=== PATIENT | female | born 1955 | race Caucasian/White ===

== ENCOUNTER → 2017-01-13 | Outpatient (CLI) | payer BC ==
[~2017-01-13] MED LIST: LORA-653 PO; PANT40TA2 PO; SULFPOW XX
[2017-01-13 11:33] LABS: Basophils # (auto) 0.1 uL; Eosinophils # (auto) 0.1 uL; Eosinophils % (auto) 2.1 % (0.0-7.0); Hematocrit 43.6 % (36.0-46.0); Hemoglobin 14.7 g/dL (12.2-16.2); Lymphocytes # (auto) 2.1 uL; Lymphocytes % (auto) 36.1 % (10.0-50.0); Mean Corpuscular Hemoglobin 32.1 pg (28.0-32.0); Mean Corpuscular Hgb Conc. 33.8 g/dL (32.0-36.0); Mean Corpuscular Volume 95.1 fL (80.0-100.0); Mean Platelet Volume 9.6 fL (7.4-10.4); Monocytes # (auto) 0.4 uL; Neutrophils # (auto) 3.1 uL; Neutrophils % (auto) 53.8 % (37.0-80.0); Platelet Count (auto) 250 10^3/uL (140-450); Red Cell Distribution Width 12.4 % (11.6-16.0); White Blood Cell 5.7 10^3/uL (4.4-10.8)
[2017-01-13 12:08] LABS: Bilirubin, Total 0.9 mg/dL (0.2-1.0); Calcium 9.3 mg/dL (8.5-10.1); Potassium 3.7 mmol/L (3.5-5.1); Total Protein 7.4 g/dL (6.4-8.2); Uric Acid 3.9 mg/dL (2.6-6.0)
== END | disposition home or self-care (01) ==
LOC: LAB 10:30
DX: M32.10 Systemic lupus erythematosus, organ or system involvement unspecified (principal); R76.8 Other specified abnormal immunological findings in serum; M06.9 Rheumatoid arthritis, unspecified; M25.50 Pain in unspecified joint; Z79.899 Other long term (current) drug therapy; D64.9 Anemia, unspecified; I10 Essential (primary) hypertension
CPT/HCPCS: 36415; 80053; 84550; 85025; 85652; 86141; 86160; 86225; 86235; 86376; 86431

== ENCOUNTER → 2017-04-20 | Outpatient (CLI) | payer BC ==
[2017-04-20 10:40] LABS: Basophils # (auto) 0.1 uL; CONDITION Y; Eosinophils # (auto) 0.1 uL; Eosinophils % (auto) 2.5 % (0.0-7.0); Hematocrit 43.6 % (36.0-46.0); Hemoglobin 15.1 g/dL (12.2-16.2); Lymphocytes # (auto) 1.8 uL; Lymphocytes % (auto) 33.5 % (10.0-50.0); Mean Corpuscular Hemoglobin 32.8 pg (28.0-32.0); Mean Corpuscular Hgb Conc. 34.5 g/dL (32.0-36.0); Mean Platelet Volume 8.8 fL (7.4-10.4); Monocytes # (auto) 0.4 uL; Monocytes % (auto) 8.3 % (0.0-12.0); Neutrophils # (auto) 2.9 uL; Neutrophils % (auto) 54.7 % (37.0-80.0); Platelet Count (auto) 246 10^3/uL (140-450); Red Cell Distribution Width 12.6 % (11.6-16.0); White Blood Cell 5.2 10^3/uL (4.4-10.8)
[2017-04-20 11:01] LABS: Urine Bilirubin Negative (Negative); Urine Blood Negative /uL (Negative); Urine Color Yellow (Yellow); Urine Glucose Normal (Normal); Urine Ketone Negative (Negative); Urine Mucus FEW (None Seen); Urine Nitrite Negative (Negative); Urine RBC 1 /hpf (0 - 4); Urine Squamous Epithelial Cell FEW /hpf (<5); Urine Urobilinogen Normal (Negative)
[2017-04-20 11:02] LABS: Albumin 3.7 g/dL (3.4-5.0); BUN/Creatinine Ratio 22.1; Bilirubin, Total 0.8 mg/dL (0.2-1.0); Calcium 9.1 mg/dL (8.5-10.1); Potassium 3.9 mmol/L (3.5-5.1)
[2017-04-20 11:38] LABS: Temperature: 22.3 C (20.0-25.0)
== END | disposition home or self-care (01) ==
LOC: LAB 10:23
PROVIDERS: ATTEND Family Medicine
DX: R53.83 Other fatigue (principal); E78.5 Hyperlipidemia, unspecified; Z12.11 Encounter for screening for malignant neoplasm of colon
CPT/HCPCS: 36415; 80053; 80061; 81001; 82306; 82607; 82746; 84439; 84443; 84480; 85025

== ENCOUNTER 2017-12-10 22:21 | Emergency (ER) | payer BC ==
[~2017-12-10] VITALS: Ht 165.1 cm; Wt 104.4 kg
[~2017-12-10 22:21] MED LIST changes: +CHOL20007 PO; -PANT40TA2 PO; -SULFPOW XX
[2017-12-10] MEDS ORDERED: cloNIDine HCL 0.1 MG TAB ONE (22:40)
[2017-12-10] MEDS ORDERED: cloNIDine HCL 0.1 MG TAB PO ONE (22:45)
[2017-12-10 22:56] LABS: Basophils # (auto) 0.1 uL; Basophils % (auto) 1.5 % (0.0-2.0); Eosinophils # (auto) 0.1 uL; Eosinophils % (auto) 1.7 % (0.0-7.0); Hemoglobin 15.3 g/dL (12.2-16.2); Lymphocytes # (auto) 2.8 uL; Lymphocytes % (auto) 41.1 % (10.0-50.0); Mean Corpuscular Hemoglobin 32.8 pg (28.0-32.0); Mean Corpuscular Hgb Conc. 34.1 g/dL (32.0-36.0); Mean Corpuscular Volume 96.2 fL (80.0-100.0); Monocytes # (auto) 0.5 uL; Monocytes % (auto) 7.7 % (0.0-12.0); Neutrophils # (auto) 3.3 uL; Nucleated Red Blood Cells % 0.2 %; Platelet Count (auto) 242 10^3/uL (140-450); Red Blood Cells 4.68 10^6/uL (4.0-5.20); Red Cell Distribution Width 12.5 % (11.8-14.3); White Blood Cell 6.8 10^3/uL (4.4-10.8)
[2017-12-10 23:15] LABS: Albumin 3.9 g/dL (3.4-5.0); Calcium 9.1 mg/dL (8.5-10.1); Potassium 3.9 mmol/L (3.5-5.1)
[2017-12-10 23:19] LABS: Bilirubin, Total 0.5 mg/dL (0.2-1.0); Total Protein 7.7 g/dL (6.4-8.2)
[2017-12-10 23:49] VITALS: BP 148/74
== END 2017-12-10 23:53 | disposition left against medical advice (07) ==
LOC: ER 22:21
DX: I10 Essential (primary) hypertension (principal); Z53.21 Procedure and treatment not carried out due to patient leaving prior to being seen by health care provider
CPT/HCPCS: 36415; 80053; 85025

== ENCOUNTER → 2018-02-12 | Outpatient (CLI) | payer BC ==
[2018-02-12 09:13] LABS: Basophils # (auto) 0.1 uL; Basophils % (auto) 2.8 % (0.0-2.0); Eosinophils # (auto) 0.1 uL; Eosinophils % (auto) 2.6 % (0.0-7.0); Hematocrit 43.6 % (36.0-46.0); Hemoglobin 14.9 g/dL (12.2-16.2); Lymphocytes # (auto) 1.6 uL; Lymphocytes % (auto) 36.6 % (10.0-50.0); Mean Corpuscular Hemoglobin 32.6 pg (28.0-32.0); Mean Corpuscular Hgb Conc. 34.3 g/dL (32.0-36.0); Mean Corpuscular Volume 95.1 fL (80.0-100.0); Monocytes # (auto) 0.3 uL; Monocytes % (auto) 7.7 % (0.0-12.0); Neutrophils # (auto) 2.2 uL; Neutrophils % (auto) 50.3 % (37.0-80.0); Platelet Count (auto) 242 10^3/uL (140-450); Red Blood Cells 4.58 10^6/uL (4.0-5.20); Red Cell Distribution Width 12.9 % (11.8-14.3); White Blood Cell 4.4 10^3/uL (4.4-10.8)
[2018-02-12 09:30] LABS: Albumin 3.7 g/dL (3.4-5.0); BUN/Creatinine Ratio 15.9; Bilirubin, Total 0.6 mg/dL (0.2-1.0); Calcium 9.1 mg/dL (8.5-10.1); Total Protein 7.4 g/dL (6.4-8.2)
== END | disposition home or self-care (01) ==
LOC: LAB 08:46
PROVIDERS: ATTEND Physician Assistant
DX: E55.9 Vitamin D deficiency, unspecified (principal); F34.1 Dysthymic disorder; I12.9 Hypertensive chronic kidney disease with stage 1 through stage 4 chronic kidney disease, or unspecified chronic kidney disease; N18.2 Chronic kidney disease, stage 2 (mild); E78.5 Hyperlipidemia, unspecified; G47.33 Obstructive sleep apnea (adult) (pediatric); Z79.899 Other long term (current) drug therapy
CPT/HCPCS: 36415; 80053; 80061; 82306; 84436; 84443; 84480; 85025

== ENCOUNTER → 2018-09-28 | Outpatient (CLI) | payer BC ==
[2018-09-28 10:27] LABS: Basophils # (auto) 0.1 uL; Basophils % (auto) 1.5 % (0.0-2.0); Eosinophils # (auto) 0.1 uL; Eosinophils % (auto) 3.2 % (0.0-7.0); Hematocrit 44.7 % (36.0-46.0); Hemoglobin 15.4 g/dL (12.2-16.2); Lymphocytes # (auto) 1.3 uL; Lymphocytes % (auto) 28.1 % (10.0-50.0); Mean Corpuscular Hemoglobin 33.1 pg (28.0-32.0); Mean Corpuscular Hgb Conc. 34.4 g/dL (32.0-36.0); Mean Corpuscular Volume 96.3 fL (80.0-100.0); Monocytes # (auto) 0.4 uL; Monocytes % (auto) 8.4 % (0.0-12.0); Neutrophils # (auto) 2.6 uL; Neutrophils % (auto) 58.8 % (37.0-80.0); Nucleated Red Blood Cells % 0.1 %; Platelet Count (auto) 247 10^3/uL (140-450); Red Blood Cells 4.65 10^6/uL (4.0-5.20); Red Cell Distribution Width 12.6 % (11.8-14.3); White Blood Cell 4.5 10^3/uL (4.4-10.8)
[2018-09-28 10:38] LABS: Albumin 3.8 g/dL (3.4-5.0); Calcium 9.2 mg/dL (8.5-10.1)
[2018-09-28 10:41] LABS: BUN/Creatinine Ratio 18.4; Bilirubin, Total 0.8 mg/dL (0.2-1.0); Total Protein 7.4 g/dL (6.4-8.2)
[2018-09-28 10:52] LABS: Free T4 (Free Thyroxine) 1.06 ng/dL (0.89-1.76); T3 Total 1.18 ng/mL (0.60-1.81)
== END | disposition home or self-care (01) ==
LOC: LAB 08:44
PROVIDERS: ATTEND Physician Assistant
DX: I12.9 Hypertensive chronic kidney disease with stage 1 through stage 4 chronic kidney disease, or unspecified chronic kidney disease (principal); N18.2 Chronic kidney disease, stage 2 (mild); E78.5 Hyperlipidemia, unspecified; I73.00 Raynaud's syndrome without gangrene; R53.83 Other fatigue; F34.1 Dysthymic disorder
CPT/HCPCS: 36415; 80053; 80061; 84439; 84443; 84480; 85025

== ENCOUNTER → 2018-10-12 | Outpatient (CLI) | payer MEDICARE, OTHER ==
[~2018-10-12] MED LIST changes: +IOHEXOL 300 MG/ML 100ML BOTTLE IJ ONE; +LIDOCAINE 1% HCL (LOCAL ANESTH.) INJ 20ML MDV ONE; +methylPREDNISolone ACETATE 80 MG/ML VL ONE
== END | disposition home or self-care (01) ==
LOC: XY 08:51
PROVIDERS: ATTEND Orthopaedic Surgery Adult Reconstructive Orthopaedic Surgery
DX: M25.551 Pain in right hip (principal); F41.9 Anxiety disorder, unspecified; F32.9 Major depressive disorder, single episode, unspecified; Z88.1 Allergy status to other antibiotic agents; Z88.0 Allergy status to penicillin; Z90.710 Acquired absence of both cervix and uterus; Z87.891 Personal history of nicotine dependence; Z83.3 Family history of diabetes mellitus; Z82.49 Family history of ischemic heart disease and other diseases of the circulatory system; Z82.61 Family history of arthritis; Z84.1 Family history of disorders of kidney and ureter
CPT/HCPCS: 10022; 20610; 73501; 77002; A4223; J1040; J2001; Q9967

== ENCOUNTER → 2018-11-06 | Outpatient (CLI) | payer MEDICARE, OTHER ==
[~2018-11-06] MED LIST changes: -IOHEXOL 300 MG/ML 100ML BOTTLE IJ ONE; -LIDOCAINE 1% HCL (LOCAL ANESTH.) INJ 20ML MDV ONE; -methylPREDNISolone ACETATE 80 MG/ML VL ONE
== END | disposition home or self-care (01) ==
LOC: LAB 15:00
PROVIDERS: ATTEND Physician Assistant
DX: D22.9 Melanocytic nevi, unspecified (principal)

== ENCOUNTER 2019-06-02 10:16 | Emergency (ER) | payer MEDICARE, OTHER ==
[~2019-06-02] VITALS: Ht 165.1 cm; Wt 97.1 kg
[~2019-06-02 10:16] MED LIST changes: -LORA-653 PO; +LORA0.5T11 PO
[2019-06-02 11:41] LABS: Urine Bacteria FEW /hpf (None Seen); Urine Blood Negative /uL (Negative); Urine Specific Gravity 1.008 (1.001-1.035); Urine WBC 3 /hpf (0 - 5)
[2019-06-02 11:43] LABS: Basophils # (auto) 0.1 uL; Basophils % (auto) 2.8 % (0.0-2.0); Eosinophils # (auto) 0.1 uL; Eosinophils % (auto) 1.7 % (0.0-7.0); Hematocrit 47.8 % (36.0-46.0); Hemoglobin 16.3 g/dL (12.2-16.2); Lymphocytes # (auto) 1.6 uL; Lymphocytes % (auto) 29.5 % (10.0-50.0); Mean Corpuscular Hgb Conc. 34.1 g/dL (32.0-36.0); Mean Corpuscular Volume 96.7 fL (80.0-100.0); Monocytes # (auto) 0.5 uL; Monocytes % (auto) 8.6 % (0.0-12.0); Neutrophils % (auto) 57.4 % (37.0-80.0); Nucleated Red Blood Cells % 0.1 %; Platelet Count (auto) 246 10^3/uL (140-450); Red Blood Cells 4.94 10^6/uL (4.0-5.20); Red Cell Distribution Width 12.7 % (11.8-14.3); White Blood Cell 5.3 10^3/uL (4.4-10.8)
[2019-06-02 11:56] LABS: Alanine Aminotransferase 18 U/L (13-56); Albumin 3.9 g/dL (3.4-5.0); Anion Gap 6 (5-15); Blood Urea Nitrogen 15 mg/dL (7-18); Calcium 9.2 mg/dL (8.5-10.1); Carbon Dioxide 27 mmol/L (21-32); Chloride 108 mmol/L (98-107); Glucose 94 mg/dL (74-106); Magnesium 2.5 mg/dL (1.6-2.6); Potassium 4.2 mmol/L (3.5-5.1); Sodium 141 mmol/L (136-145)
[2019-06-02 12:01] LABS: Alkaline Phosphatase 59 U/L (45-117); Aspartate Aminotransferase 14 U/L (15-37); BUN/Creatinine Ratio 16.5; Bilirubin, Total 0.9 mg/dL (0.2-1.0); GFR African American 80 mL/min; GFR Non-African American 66 mL/min; Total Protein 7.5 g/dL (6.4-8.2)
[2019-06-02] MEDS ORDERED: SODIUM CHLORIDE 0.9% 1,000 ML IV ONE (12:05)
[2019-06-02 15:48] VITALS: BP 115/57
== END 2019-06-02 16:20 | disposition home or self-care (01) ==
LOC: ER 10:16
DX: N28.1 Cyst of kidney, acquired (principal); K29.70 Gastritis, unspecified, without bleeding; I10 Essential (primary) hypertension; Z90.710 Acquired absence of both cervix and uterus
CPT/HCPCS: 36415; 71045; 74176; 80053; 81001; 83735; 84484; 85025; 93005; 96360; 99284; J7030

== ENCOUNTER 2019-06-08 22:25 | Emergency (ER) | payer MEDICARE, OTHER ==
[~2019-06-08] VITALS: Ht 162.6 cm; Wt 95.3 kg
[2019-06-09 00:02] LABS: Basophils # (auto) 0.1 uL; Basophils % (auto) 1.2 % (0.0-2.0); Eosinophils # (auto) 0.1 uL; Eosinophils % (auto) 1.4 % (0.0-7.0); Hematocrit 46.6 % (36.0-46.0); Hemoglobin 15.7 g/dL (12.2-16.2); Lymphocytes % (auto) 28.1 % (10.0-50.0); Mean Corpuscular Hemoglobin 32.8 pg (28.0-32.0); Mean Corpuscular Hgb Conc. 33.8 g/dL (32.0-36.0); Monocytes # (auto) 0.6 uL; Monocytes % (auto) 8.6 % (0.0-12.0); Neutrophils # (auto) 4.3 uL; Neutrophils % (auto) 60.7 % (37.0-80.0); Nucleated Red Blood Cells % 0.1 %; Platelet Count (auto) 233 10^3/uL (140-450); Red Cell Distribution Width 12.7 % (11.8-14.3); White Blood Cell 7.1 10^3/uL (4.4-10.8)
[2019-06-09 00:21] LABS: Albumin 3.9 g/dL (3.4-5.0); Anion Gap 8 (5-15); Blood Urea Nitrogen 21 mg/dL (7-18); Calcium 9.6 mg/dL (8.5-10.1); Carbon Dioxide 26 mmol/L (21-32); Chloride 108 mmol/L (98-107); Glucose 103 mg/dL (74-106); Magnesium 2.5 mg/dL (1.6-2.6); Potassium 4.9 mmol/L (3.5-5.1); Sodium 142 mmol/L (136-145)
[2019-06-09 00:24] LABS: Alanine Aminotransferase 22 U/L (13-56); Aspartate Aminotransferase 16 U/L (15-37); BUN/Creatinine Ratio 19.1; GFR African American 64 mL/min; GFR Non-African American 53 mL/min
[2019-06-09 00:29] LABS: Alkaline Phosphatase 61 U/L (45-117); Bilirubin, Total 0.4 mg/dL (0.2-1.0); Total Protein 7.4 g/dL (6.4-8.2)
[2019-06-09 08:17] LABS: Urine Bacteria FEW /hpf (None Seen); Urine Blood Negative /uL (Negative); Urine Mucus FEW (None Seen); Urine Specific Gravity 1.028 (1.001-1.035); Urine WBC 6 /hpf (0 - 5)
[2019-06-09 09:03] VITALS: BP 151/78
== END 2019-06-09 09:53 | disposition home or self-care (01) ==
LOC: ER 22:25
DX: N28.1 Cyst of kidney, acquired (principal); I10 Essential (primary) hypertension; Z90.710 Acquired absence of both cervix and uterus; Z90.89 Acquired absence of other organs; Z88.0 Allergy status to penicillin; Z88.1 Allergy status to other antibiotic agents; Z79.899 Other long term (current) drug therapy
CPT/HCPCS: 36415; 71045; 74176; 80053; 81001; 83735; 83880; 84484; 85025; 93005

== ENCOUNTER 2019-06-21 15:38 | Emergency (ER) | payer MEDICARE, OTHER ==
[~2019-06-21] VITALS: Ht 165.1 cm; Wt 96.2 kg
[2019-06-21 18:03] LABS: Basophils # (auto) 0.1 uL; Eosinophils # (auto) 0.1 uL; Eosinophils % (auto) 1.7 % (0.0-7.0); Hematocrit 45.9 % (36.0-46.0); Hemoglobin 15.7 g/dL (12.2-16.2); Lymphocytes # (auto) 2.3 uL; Lymphocytes % (auto) 36.6 % (10.0-50.0); Mean Corpuscular Hemoglobin 33.2 pg (28.0-32.0); Mean Corpuscular Hgb Conc. 34.2 g/dL (32.0-36.0); Mean Corpuscular Volume 97.1 fL (80.0-100.0); Monocytes # (auto) 0.5 uL; Monocytes % (auto) 7.3 % (0.0-12.0); Neutrophils # (auto) 3.4 uL; Neutrophils % (auto) 53.4 % (37.0-80.0); Platelet Count (auto) 221 10^3/uL (140-450); Red Blood Cells 4.73 10^6/uL (4.0-5.20); Red Cell Distribution Width 12.4 % (11.8-14.3); White Blood Cell 6.3 10^3/uL (4.4-10.8)
[2019-06-21 18:17] LABS: Alanine Aminotransferase 20 U/L (13-56); Albumin 3.7 g/dL (3.4-5.0); Anion Gap 7 (5-15); Blood Urea Nitrogen 13 mg/dL (7-18); Calcium 9.2 mg/dL (8.5-10.1); Carbon Dioxide 26 mmol/L (21-32); Chloride 108 mmol/L (98-107); Glucose 121 mg/dL (74-106); Magnesium 2.6 mg/dL (1.6-2.6); Potassium 4.2 mmol/L (3.5-5.1); Sodium 141 mmol/L (136-145)
[2019-06-21 18:22] LABS: Alkaline Phosphatase 55 U/L (45-117); Aspartate Aminotransferase 16 U/L (15-37); BUN/Creatinine Ratio 15.1; Bilirubin, Total 0.7 mg/dL (0.2-1.0); GFR African American 85 mL/min; GFR Non-African American 70 mL/min; Total Protein 7.7 g/dL (6.4-8.2)
[2019-06-21 19:20] LABS: INR 0.93 (0.9-1.15); Partial Thromboplastin Time 25.7 sec (23.64-32.05)
[2019-06-21 19:22] VITALS: BP 165/69
== END 2019-06-21 19:47 | disposition home or self-care (01) ==
LOC: ER 15:40
DX: R00.2 Palpitations (principal); I10 Essential (primary) hypertension; Z90.710 Acquired absence of both cervix and uterus; Z90.89 Acquired absence of other organs; Z88.1 Allergy status to other antibiotic agents; Z88.0 Allergy status to penicillin
CPT/HCPCS: 36415; 71046; 80053; 83735; 84484; 85025; 85610; 85730; 93005; 94761

== ENCOUNTER → 2019-07-08 | Outpatient (CLI) | payer MEDICARE, OTHER ==
[2019-07-08 09:50] LABS: Basophils # (auto) 0.1 uL; Basophils % (auto) 1.1 % (0.0-2.0); Eosinophils # (auto) 0.2 uL; Hematocrit 44.3 % (36.0-46.0); Hemoglobin 15.2 g/dL (12.2-16.2); Lymphocytes # (auto) 1.8 uL; Lymphocytes % (auto) 30.6 % (10.0-50.0); Mean Corpuscular Hemoglobin 33.1 pg (28.0-32.0); Mean Corpuscular Hgb Conc. 34.4 g/dL (32.0-36.0); Mean Corpuscular Volume 96.2 fL (80.0-100.0); Monocytes # (auto) 0.5 uL; Monocytes % (auto) 8.7 % (0.0-12.0); Neutrophils # (auto) 3.3 uL; Neutrophils % (auto) 56.6 % (37.0-80.0); Platelet Count (auto) 234 10^3/uL (140-450); Red Cell Distribution Width 12.6 % (11.8-14.3); White Blood Cell 5.9 10^3/uL (4.4-10.8)
[2019-07-08 10:12] LABS: INR < 0.93 (0.9-1.15); Partial Thromboplastin Time 24.9 sec (23.64-32.05)
== END | disposition home or self-care (01) ==
LOC: LAB 09:37
PROVIDERS: ATTEND Urology
DX: N28.1 Cyst of kidney, acquired (principal); R10.9 Unspecified abdominal pain
CPT/HCPCS: 36415; 85025; 85610; 85730

== ENCOUNTER → 2019-07-10 | Outpatient (CLI) | payer MEDICARE, OTHER ==
[~2019-07-10] MED LIST changes: +LIDOCAINE 2%HCL (LOCAL ANESTH.) INJ 20ML MDV ONE; +MIDAZOLAM HCL 1MG/1ML-2 ML VIAL ONE; +fentaNYL CITRATE 100 MCG/2 ML VL ONE
== END | disposition home or self-care (01) ==
LOC: CT 08:30
PROVIDERS: ATTEND Urology
DX: N28.1 Cyst of kidney, acquired (principal); I12.9 Hypertensive chronic kidney disease with stage 1 through stage 4 chronic kidney disease, or unspecified chronic kidney disease; N18.2 Chronic kidney disease, stage 2 (mild); F41.9 Anxiety disorder, unspecified; F32.9 Major depressive disorder, single episode, unspecified; G47.33 Obstructive sleep apnea (adult) (pediatric); K21.9 Gastro-esophageal reflux disease without esophagitis; E78.5 Hyperlipidemia, unspecified; M16.11 Unilateral primary osteoarthritis, right hip; Z87.442 Personal history of urinary calculi; Z79.899 Other long term (current) drug therapy; Z88.0 Allergy status to penicillin; Z88.1 Allergy status to other antibiotic agents; Z88.8 Allergy status to other drugs, medicaments and biological substances; Z87.891 Personal history of nicotine dependence
CPT/HCPCS: 50390; 74170; 77012; 88104; C1729; J2250; J3010; 10022

== ENCOUNTER → 2019-11-28 | Outpatient (CLI) | payer MEDICARE, OTHER ==
[~2019-11-28] MED LIST changes: +BUPIVACAINE HCL 0.25% P/F 10 ML VIAL ONE; +GADOTERIDOL 279.3mg/mL 20ml Vial IV ONE; +IOHEXOL 300 MG/ML 100ML BOTTLE IJ ONE; -MIDAZOLAM HCL 1MG/1ML-2 ML VIAL ONE; -fentaNYL CITRATE 100 MCG/2 ML VL ONE; +methylPREDNISolone ACETATE 80 MG/ML VL ONE
== END | disposition home or self-care (01) ==
LOC: XY 09:32
PROVIDERS: ATTEND Orthopaedic Surgery Adult Reconstructive Orthopaedic Surgery
DX: M16.11 Unilateral primary osteoarthritis, right hip (principal); F32.9 Major depressive disorder, single episode, unspecified; F41.9 Anxiety disorder, unspecified; Z87.891 Personal history of nicotine dependence; Z90.710 Acquired absence of both cervix and uterus; Z88.8 Allergy status to other drugs, medicaments and biological substances; Z88.1 Allergy status to other antibiotic agents; Z88.0 Allergy status to penicillin
CPT/HCPCS: 20610; 73501; 77002; J1040; J3490; Q9967; 76000

== ENCOUNTER → 2021-02-25 | Outpatient (CLI) | payer MEDICARE ==
[~2021-02-25] MED LIST changes: -BUPIVACAINE HCL 0.25% P/F 10 ML VIAL ONE; -GADOTERIDOL 279.3mg/mL 20ml Vial IV ONE; -IOHEXOL 300 MG/ML 100ML BOTTLE IJ ONE; -LIDOCAINE 2%HCL (LOCAL ANESTH.) INJ 20ML MDV ONE; -LORA0.5T11 PO; +LORA0.5T19 PO; -methylPREDNISolone ACETATE 80 MG/ML VL ONE
[2021-02-25 09:57] LABS: Basophils # (auto) 0.1 10 ^3/uL (0-0.2); Basophils % (auto) 1.4 % (0.0-2.0); Eosinophils # (auto) 0.1 10 ^3/uL (0-0.8); Eosinophils % (auto) 1.6 % (0.0-7.0); Hematocrit 41.4 % (36.0-46.0); Hemoglobin 14.5 g/dL (12.2-16.2); Lymphocytes # (auto) 1.7 10 ^3/uL (0.4-5.4); Lymphocytes % (auto) 33.9 % (10.0-50.0); Mean Corpuscular Hemoglobin 33.6 pg (28.0-32.0); Mean Corpuscular Hgb Conc. 34.9 g/dL (32.0-36.0); Mean Corpuscular Volume 96.1 fL (80.0-100.0); Monocytes # (auto) 0.4 10 ^3/uL (0-1.3); Monocytes % (auto) 9.1 % (0.0-12.0); Neutrophils # (auto) 2.6 10 ^3/uL (1.6-8.6); Nucleated Red Blood Cells % 0.1 %; Platelet Count (auto) 226 10^3/uL (140-450); Red Blood Cells 4.31 10^6/uL (4.0-5.20); Red Cell Distribution Width 12.7 % (11.8-14.3); White Blood Cell 4.9 10^3/uL (4.4-10.8)
[2021-02-25 10:26] LABS: Urine Bacteria NONE SEEN /hpf (None Seen); Urine Blood Negative /uL (Negative); Urine Mucus FEW (None Seen); Urine Specific Gravity 1.026 (1.001-1.035); Urine WBC 8 /hpf (0 - 5)
[2021-02-25 10:39] LABS: Albumin 3.6 g/dL (3.4-5.0); Bilirubin, Total 0.6 mg/dL (0.2-1.0); Calcium 8.9 mg/dL (8.5-10.1); Total Protein 6.8 g/dL (6.4-8.2)
== END | disposition home or self-care (01) ==
LOC: LAB 09:39
PROVIDERS: ATTEND Nurse Practitioner
DX: I10 Essential (primary) hypertension (principal); E78.5 Hyperlipidemia, unspecified
CPT/HCPCS: 36415; 80053; 80061; 81001; 85025

== ENCOUNTER → 2021-09-27 | Outpatient (CLI) | payer BC ==
[~2021-09-27] MED LIST changes: +ASPI1TAB20 PO; +CHOL20009 PO; +CHOL500021 PO; +DESV1TAB15 PO; +RAMI10CA38 PO
[2021-09-27 09:56] LABS: Basophils # (auto) 0.1 10 ^3/uL (0-0.2); Eosinophils # (auto) 0.1 10 ^3/uL (0-0.8); Eosinophils % (auto) 2.1 % (0.0-7.0); Hematocrit 42.8 % (36.0-46.0); Hemoglobin 14.7 g/dL (12.2-16.2); Lymphocytes # (auto) 1.4 10 ^3/uL (0.4-5.4); Lymphocytes % (auto) 34.9 % (10.0-50.0); Mean Corpuscular Hemoglobin 33.4 pg (28.0-32.0); Mean Corpuscular Hgb Conc. 34.4 g/dL (32.0-36.0); Monocytes # (auto) 0.4 10 ^3/uL (0-1.3); Monocytes % (auto) 9.9 % (0.0-12.0); Neutrophils # (auto) 2.1 10 ^3/uL (1.6-8.6); Neutrophils % (auto) 51.1 % (37.0-80.0); Nucleated Red Blood Cells % 0.1 %; Red Blood Cells 4.41 10^6/uL (4.0-5.20); Red Cell Distribution Width 12.5 % (11.8-14.3); White Blood Cell 4.1 10^3/uL (4.4-10.8)
[2021-09-27 10:05] LABS: INR 0.99 (0.9-1.15); Partial Thromboplastin Time 25.6 sec (23.6-33.0)
[2021-09-27 10:23] LABS: Albumin 3.5 g/dL (3.4-5.0); Calcium 8.8 mg/dL (8.5-10.1); Potassium 4.4 mmol/L (3.5-5.1)
[2021-09-27 10:27] LABS: BUN/Creatinine Ratio 18.6; Bilirubin, Total 0.6 mg/dL (0.2-1.0); Total Protein 6.9 g/dL (6.4-8.2)
== END | disposition home or self-care (01) ==
LOC: LAB 09:29
PROVIDERS: ATTEND Internal Medicine
DX: Z01.812 Encounter for preprocedural laboratory examination (principal)
CPT/HCPCS: 36415; 80053; 85025; 85610; 85730

== ENCOUNTER 2021-09-29 09:06 | Day surgery (SDC) | payer BC ==
[~2021-09-29] VITALS: Ht 165.1 cm; Wt 90.7 kg
[~2021-09-29 09:06] MED LIST changes: -CHOL20007 PO; -CHOL20009 PO; -LORA0.5T19 PO
[2021-09-29] MEDS ORDERED: LIDOCAINE 2%HCL (LOCAL ANESTH.) INJ 20ML MDV ONE (09:15)
[2021-09-29] MEDS ORDERED: IODIXANOL 320MG/ML 100ML BTL IV ONE (09:15)
[2021-09-29] MEDS ORDERED: HEPARIN SODIUM (PORCINE) 5000 UNITS/ML 1ML VIAL ONE (12:28)
[2021-09-29] MEDS ORDERED: fentaNYL CITRATE 100 MCG/2 ML VL ONE (12:28)
[2021-09-29] MEDS ORDERED: VERAPAMIL 2.5MG/ML INJ 2ML VIAL IV ONE (12:28)
[2021-09-29] MEDS ORDERED: ANGIOMAX 250 MG VIAL IV ONE (12:28)
[2021-09-29] MEDS ORDERED: MIDAZOLAM HCL 2MG/2ML 2ml VIAL (1mg/ml) ONE (12:29)
[2021-09-29] MEDS ORDERED: SODIUM CHL 0.9% 0 ML ONE (12:29)
== END 2021-09-29 15:30 | disposition home or self-care (01) ==
LOC: CATH 09:06
PROVIDERS: ATTEND Internal Medicine
DX: R93.49 Abnormal radiologic findings on diagnostic imaging of other urinary organs (principal); I25.10 Atherosclerotic heart disease of native coronary artery without angina pectoris; F41.9 Anxiety disorder, unspecified; F32.9 Major depressive disorder, single episode, unspecified; Z90.710 Acquired absence of both cervix and uterus; Z87.891 Personal history of nicotine dependence; Z82.49 Family history of ischemic heart disease and other diseases of the circulatory system; Z83.3 Family history of diabetes mellitus; Z84.1 Family history of disorders of kidney and ureter; Z82.61 Family history of arthritis; Z20.822 Contact with and (suspected) exposure to COVID-19; Z79.82 Long term (current) use of aspirin; I10 Essential (primary) hypertension; Z88.0 Allergy status to penicillin; Z88.1 Allergy status to other antibiotic agents
CPT/HCPCS: 93458; C1769; C1887; C1894; J1644; J2250; J3010; J7030; U0003; 99152; Q9967

== ENCOUNTER → 2021-10-19 | Day surgery (SDC) | payer BC ==
[2021-10-15 12:21] LABS: Basophils # (auto) 0 10 ^3/uL (0-0.2); Eosinophils # (auto) 0.1 10 ^3/uL (0-0.8); Eosinophils % (auto) 1.6 % (0.0-7.0); Hematocrit 43.4 % (36.0-46.0); Hemoglobin 14.3 g/dL (12.2-16.2); Lymphocytes # (auto) 1.7 10 ^3/uL (0.4-5.4); Lymphocytes % (auto) 36.6 % (10.0-50.0); Mean Corpuscular Hemoglobin 32.2 pg (28.0-32.0); Mean Corpuscular Hgb Conc. 32.9 g/dL (32.0-36.0); Mean Corpuscular Volume 97.8 fL (80.0-100.0); Monocytes # (auto) 0.4 10 ^3/uL (0-1.3); Monocytes % (auto) 9.7 % (0.0-12.0); Neutrophils # (auto) 2.3 10 ^3/uL (1.6-8.6); Neutrophils % (auto) 51.1 % (37.0-80.0); Red Blood Cells 4.44 10^6/uL (4.0-5.20); Red Cell Distribution Width 12.8 % (11.8-14.3); White Blood Cell 4.6 10^3/uL (4.4-10.8)
[2021-10-15 12:29] LABS: Urine Bacteria NONE SEEN /hpf (None Seen); Urine Blood Negative /uL (Negative); Urine Mucus FEW (None Seen); Urine Specific Gravity 1.024 (1.001-1.035); Urine WBC 2 /hpf (0 - 5)
[2021-10-15 14:10] LABS: Albumin 3.8 g/dL (3.4-5.0); Calcium 9.1 mg/dL (8.5-10.1); Potassium 4.2 mmol/L (3.5-5.1)
[2021-10-15 14:13] LABS: BUN/Creatinine Ratio 23.1; Bilirubin, Total 0.6 mg/dL (0.2-1.0); Total Protein 6.8 g/dL (6.4-8.2)
[~2021-10-19] VITALS: Ht 165.1 cm; Wt 93.0 kg
[~2021-10-19] MED LIST changes: +BUPIVACAINE 0.5% MPF INJ 30ML SDV IJ ONE; +CLINDAMYCIN 600MG IV 50 ML IV ONE; +DexAMETHasone SOD PHOS 10MG/1ML VIAL INJ ONE; +EPINEPHrine HCL 1 MG/1 ML AMP ONE; +GLYCOPYRROLATE 0.2 MG/ML 1ML VIAL ONE; +HYDROmorphone HCL 2 MG/ML VL IV PRN; +HYDROmorphone HCL 2 MG/ML VL ONE; +LIDOCAINE 2% (LOCAL ANESTH.) PF 5ml SDV ONE; +LIDOCAINE 4MG/ML IV SOLN 500 ML IV ONE; +LIDOCAINE HCL 100 MG/5ML (2%) SYRG INJ IV ONE; +METOCLOPRAMIDE HCL 5MG/ml INJ 2ml VIAL IV PRN; +MIDAZOLAM HCL 2MG/2ML 2ml VIAL (1mg/ml) ONE; +MORPHINE SULFATE 4 MG/ML SYR/VIAL IV PRN; +NEOSTIGMINE 1 MG/ML INJ (10mg/10ML VIAL) ONE; +ONDANSETRON HCL 4 MG/2 ML VIAL ONE; +ROCURONIUM 10MG/ML 10ML VIAL IV ONE; +SUCCINYLCHOLINE CHLORIDE 20 MG/ML 10ML VIAL IV ONE; +TRANEXAMIC ACID 0 ML ONE; +ePHEDrine SULFATE 50 MG/ML AMP ONE; +fentaNYL CITRATE 100 MCG/2 ML VL ONE; +fentaNYL CITRATE 5 ML ONE
[2021-10-19 11:50] VITALS: BP 130/57
== END | disposition home or self-care (01) ==
LOC: SUR 06:07
PROVIDERS: ATTEND Orthopaedic Surgery Sports Medicine
DX: S46.011A Strain of muscle(s) and tendon(s) of the rotator cuff of right shoulder, initial encounter (principal); S46.211A Strain of muscle, fascia and tendon of other parts of biceps, right arm, initial encounter; S43.431A Superior glenoid labrum lesion of right shoulder, initial encounter; M94.211 Chondromalacia, right shoulder; M65.9 Synovitis and tenosynovitis, unspecified; F41.9 Anxiety disorder, unspecified; F32.9 Major depressive disorder, single episode, unspecified; I10 Essential (primary) hypertension; Z90.710 Acquired absence of both cervix and uterus; Z82.49 Family history of ischemic heart disease and other diseases of the circulatory system; Z83.3 Family history of diabetes mellitus; Z84.1 Family history of disorders of kidney and ureter; Z82.61 Family history of arthritis; Z87.891 Personal history of nicotine dependence; Z90.89 Acquired absence of other organs; Z88.1 Allergy status to other antibiotic agents; Z88.0 Allergy status to penicillin; Z20.822 Contact with and (suspected) exposure to COVID-19; X58.XXXA Exposure to other specified factors, initial encounter; Y93.89 Activity, other specified; Y92.89 Other specified places as the place of occurrence of the external cause; Y99.8 Other external cause status
CPT/HCPCS: 29826; 29827; 29828; 36415; 80053; 81001; 85025; C1713; J0171; J0330; J1100; J1170; J2001; J2250; J2405; J2765; J3010; J3490; U0003; A4565

== ENCOUNTER → 2022-05-10 | Outpatient (CLI) | payer BC ==
[~2022-05-10] MED LIST changes: -BUPIVACAINE 0.5% MPF INJ 30ML SDV IJ ONE; +BUPIVACAINE HCL 0.25% P/F 10 ML VIAL ONE; -CLINDAMYCIN 600MG IV 50 ML IV ONE; -DexAMETHasone SOD PHOS 10MG/1ML VIAL INJ ONE; -EPINEPHrine HCL 1 MG/1 ML AMP ONE; -GLYCOPYRROLATE 0.2 MG/ML 1ML VIAL ONE; -HYDROmorphone HCL 2 MG/ML VL IV PRN; -HYDROmorphone HCL 2 MG/ML VL ONE; -LIDOCAINE 2% (LOCAL ANESTH.) PF 5ml SDV ONE; -LIDOCAINE 4MG/ML IV SOLN 500 ML IV ONE; -LIDOCAINE HCL 100 MG/5ML (2%) SYRG INJ IV ONE; -METOCLOPRAMIDE HCL 5MG/ml INJ 2ml VIAL IV PRN; -MIDAZOLAM HCL 2MG/2ML 2ml VIAL (1mg/ml) ONE; -MORPHINE SULFATE 4 MG/ML SYR/VIAL IV PRN; -NEOSTIGMINE 1 MG/ML INJ (10mg/10ML VIAL) ONE; -ONDANSETRON HCL 4 MG/2 ML VIAL ONE; -ROCURONIUM 10MG/ML 10ML VIAL IV ONE; -SUCCINYLCHOLINE CHLORIDE 20 MG/ML 10ML VIAL IV ONE; -TRANEXAMIC ACID 0 ML ONE; -ePHEDrine SULFATE 50 MG/ML AMP ONE; -fentaNYL CITRATE 100 MCG/2 ML VL ONE; -fentaNYL CITRATE 5 ML ONE; +methylPREDNISolone ACETATE 80 MG/ML VL ONE
== END | disposition home or self-care (01) ==
LOC: XY 12:27
PROVIDERS: ATTEND Orthopaedic Surgery Adult Reconstructive Orthopaedic Surgery
DX: M48.061 Spinal stenosis, lumbar region without neurogenic claudication (principal); M16.11 Unilateral primary osteoarthritis, right hip; F41.9 Anxiety disorder, unspecified; F32.A Depression, unspecified; Z68.33 Body mass index [BMI] 33.0-33.9, adult; Z87.891 Personal history of nicotine dependence; Z83.3 Family history of diabetes mellitus; Z82.49 Family history of ischemic heart disease and other diseases of the circulatory system; Z82.61 Family history of arthritis; Z90.710 Acquired absence of both cervix and uterus; Z84.1 Family history of disorders of kidney and ureter
CPT/HCPCS: 20610; 73501; J1040; J3490; Q9965; 76000

== ENCOUNTER → 2022-07-28 | Outpatient (CLI) | payer BC ==
[~2022-07-28] MED LIST changes: -BUPIVACAINE HCL 0.25% P/F 10 ML VIAL ONE; -methylPREDNISolone ACETATE 80 MG/ML VL ONE
== END | disposition home or self-care (01) ==
LOC: XY 09:34
PROVIDERS: ATTEND Internal Medicine
DX: R42 Dizziness and giddiness (principal); I10 Essential (primary) hypertension
CPT/HCPCS: 93886

== ENCOUNTER → 2023-08-23 | Outpatient (CLI) | payer BC ==
[2023-08-23 15:21] LABS: Basophils # (auto) 0.1 10 ^3/uL (0-0.2); Eosinophils # (auto) 0.1 10 ^3/uL (0-0.8); Eosinophils % (auto) 1.7 % (0.0-7.0); Hematocrit 44.7 % (36.0-46.0); Hemoglobin 15.1 g/dL (12.2-16.2); Lymphocytes # (auto) 2.2 10 ^3/uL (0.4-5.4); Lymphocytes % (auto) 35.1 % (10.0-50.0); Mean Corpuscular Hemoglobin 32.9 pg (28.0-32.0); Mean Corpuscular Hgb Conc. 33.8 g/dL (32.0-36.0); Mean Corpuscular Volume 97.4 fL (80.0-100.0); Monocytes # (auto) 0.5 10 ^3/uL (0-1.3); Monocytes % (auto) 8.3 % (0.0-12.0); Neutrophils # (auto) 3.4 10 ^3/uL (1.6-8.6); Neutrophils % (auto) 53.9 % (37.0-80.0); Nucleated Red Blood Cells % 0.1 %; Red Blood Cells 4.59 10^6/uL (4.0-5.20); Red Cell Distribution Width 12.8 % (11.8-14.3); White Blood Cell 6.3 10^3/uL (4.4-10.8)
[2023-08-23 15:24] LABS: Urine Bacteria NONE SEEN /hpf (None Seen); Urine Blood Negative /uL (Negative); Urine Clarity Clear (Clear); Urine Color Yellow (Yellow); Urine Protein, UAD Negative (Negative); Urine Specific Gravity 1.021 (1.001-1.035); Urine Urobilinogen Normal (Negative); Urine WBC 3 /hpf (0 - 5)
[2023-08-23 15:33] LABS: INR 1.02 (0.9-1.15); Partial Thromboplastin Time 29.6 SEC (24.5-34.5); Prothrombin Time 10.7 sec (9.3-11.8)
[2023-08-23 15:47] LABS: Alanine Aminotransferase 20 U/L (7-40); Alkaline Phosphatase 61 U/L (46-116); Anion Gap 6 (5-15); Aspartate Aminotransferase 15 U/L (13-40); BUN/Creatinine Ratio 12.7 (10.0-20.0); Bilirubin, Total 0.9 mg/dL (0.2-1.0); Blood Urea Nitrogen 10 mg/dL (9-23); Calcium 9.7 mg/dL (8.7-10.4); Carbon Dioxide 28 mmol/L (20-30); Chloride 104 mmol/L (98-107); Glucose 89 mg/dL (74-106); Potassium 4.4 mmol/L (3.5-5.1); Sodium 138 mmol/L (136-145)
[2023-08-23 15:48] LABS: Total Protein 7.1 g/dL (5.7-8.2)
[2023-08-23 16:05] LABS: Albumin 4.5 g/dL (3.2-4.8)
== END | disposition home or self-care (01) ==
LOC: LAB 14:38
PROVIDERS: ATTEND Nurse Practitioner
DX: Z01.812 Encounter for preprocedural laboratory examination (principal)
CPT/HCPCS: 36415; 80053; 81001; 85025; 85610; 85730

== ENCOUNTER → 2024-06-11 | Outpatient (CLI) | payer BC | END | disposition home or self-care (01) | LOC: US 11:08 | PROVIDERS: ATTEND Nurse Practitioner | DX: C50.811 Malignant neoplasm of overlapping sites of right female breast (principal); F41.9 Anxiety disorder, unspecified; F32.A Depression, unspecified; Z79.82 Long term (current) use of aspirin; Z88.0 Allergy status to penicillin; Z88.1 Allergy status to other antibiotic agents; Z87.891 Personal history of nicotine dependence; Z90.710 Acquired absence of both cervix and uterus; Z98.891 History of uterine scar from previous surgery; Z83.3 Family history of diabetes mellitus; Z82.49 Family history of ischemic heart disease and other diseases of the circulatory system | CPT/HCPCS: 19083; 88305; 88312; 88342; A4648; 76642; 76942 ==

== ENCOUNTER 2024-07-17 08:47 | Day surgery (SDC) | payer BC ==
[2024-07-16 10:18] LABS: Basophils # (auto) 0 10 ^3/uL (0-0.2); Basophils % (auto) 0.4 % (0.0-2.0); Eosinophils # (auto) 0.1 10 ^3/uL (0-0.8); Eosinophils % (auto) 1.5 % (0.0-7.0); Hematocrit 42.9 % (36.0-46.0); Lymphocytes # (auto) 1.4 10 ^3/uL (0.4-5.4); Mean Corpuscular Hemoglobin 34.1 pg (28.0-32.0); Mean Corpuscular Volume 97.5 fL (80.0-100.0); Monocytes # (auto) 0.4 10 ^3/uL (0-1.3); Monocytes % (auto) 8.4 % (0.0-12.0); Neutrophils # (auto) 2.7 10 ^3/uL (1.6-8.6); Neutrophils % (auto) 58.7 % (37.0-80.0); Platelet Count (auto) 214 10^3/uL (140-450); Red Cell Distribution Width 13.2 % (11.8-14.3); White Blood Cell 4.5 10^3/uL (4.4-10.8)
[2024-07-16 11:14] LABS: INR 1.03 (0.9-1.15); Partial Thromboplastin Time 28.1 SEC (24.5-34.5); Prothrombin Time 10.9 sec (9.3-11.8)
[2024-07-16 11:28] LABS: Alanine Aminotransferase 17 U/L (7-40); Albumin 4.5 g/dL (3.2-4.8); Alkaline Phosphatase 57 U/L (46-116); Anion Gap 4 (5-15); Aspartate Aminotransferase 15 U/L (13-40); BUN/Creatinine Ratio 16.7 (10.0-20.0); Bilirubin, Total 1.2 mg/dL (0.2-1.0); Blood Urea Nitrogen 12 mg/dL (9-23); Carbon Dioxide 28 mmol/L (20-30); Chloride 108 mmol/L (98-107); Glucose 93 mg/dL (74-106); Potassium 4.4 mmol/L (3.5-5.1); Sodium 140 mmol/L (136-145); Total Protein 6.9 g/dL (5.7-8.2)
[~2024-07-17] VITALS: Ht 165.1 cm; Wt 88.5 kg
[2024-07-17] VITALS (7 sets, daily range): BP systolic 104–141; BP diastolic 44–89; PULSE 50–79; RESP 12–19; O2SAT 94–98
[~2024-07-17 08:47] MED LIST changes: +APIX5TAB PO; -ASPI1TAB20 PO; +CHOL1CAP59 PO; -CHOL500021 PO; -DESV1TAB15 PO; +MAGN100T9 PO; +METO-289 PO; +POM; +POM PO; -RAMI10CA38 PO
[2024-07-17] MEDS ORDERED: ANGIOMAX 250 MG VIAL IV ONE (11:59)
[2024-07-17] MEDS ORDERED: VERAPAMIL 2.5MG/ML INJ 2ML VIAL IV ONE (11:59)
[2024-07-17] MEDS ORDERED: HEPARIN SODIUM (PORCINE) 5000 UNITS/ML 1ML VIAL ONE (11:59)
[2024-07-17] MEDS ORDERED: fentaNYL CITRATE 100 MCG/2 ML VL ONE (12:00)
[2024-07-17] MEDS ORDERED: SODIUM CHL 0.9% 50 ML ONE (12:00)
[2024-07-17] MEDS ORDERED: LIDOCAINE 2%HCL (LOCAL ANESTH.) INJ 20ML MDV ONE (12:00)
[2024-07-17] MEDS ORDERED: MIDAZOLAM HCL 2MG/2ML 2ml VIAL (1mg/ml) ONE (12:00)
== END 2024-07-17 15:05 | disposition home or self-care (01) ==
LOC: CATH 08:47
PROVIDERS: ATTEND Internal Medicine
DX: I25.10 Atherosclerotic heart disease of native coronary artery without angina pectoris (principal); R94.39 Abnormal result of other cardiovascular function study; I10 Essential (primary) hypertension; I48.0 Paroxysmal atrial fibrillation; M19.90 Unspecified osteoarthritis, unspecified site; F32.A Depression, unspecified; Z88.0 Allergy status to penicillin; Z88.1 Allergy status to other antibiotic agents; F41.9 Anxiety disorder, unspecified; Z87.440 Personal history of urinary (tract) infections; Z87.442 Personal history of urinary calculi; Z87.891 Personal history of nicotine dependence
CPT/HCPCS: 36415; 80053; 85025; 85610; 85730; 93458; C1887; C1894; J0583; J1644; J2250; J3010; J7030; Q9967; 99152

== ENCOUNTER → 2024-08-13 | Outpatient (CLI) | payer BC ==
[2024-08-13 09:40] LABS: Basophils # (auto) 0.1 10 ^3/uL (0-0.2); Eosinophils # (auto) 0.1 10 ^3/uL (0-0.8); Hemoglobin 15.4 g/dL (12.2-16.2); Lymphocytes # (auto) 1.5 10 ^3/uL (0.4-5.4); Neutrophils # (auto) 2.6 10 ^3/uL (1.6-8.6); White Blood Cell 4.6 10^3/uL (4.4-10.8)
[2024-08-13 09:43] LABS: Basophils % (auto) 1.3 % (0.0-2.0); Eosinophils % (auto) 2.2 % (0.0-7.0); Hematocrit 44.3 % (36.0-46.0); Mean Corpuscular Hemoglobin 34.3 pg (28.0-32.0); Mean Corpuscular Hgb Conc. 34.8 g/dL (32.0-36.0); Mean Corpuscular Volume 98.6 fL (80.0-100.0); Monocytes # (auto) 0.4 10 ^3/uL (0-1.3); Monocytes % (auto) 8.3 % (0.0-12.0); Neutrophils % (auto) 56.2 % (37.0-80.0); Platelet Count (auto) 205 10^3/uL (140-450); Red Blood Cells 4.49 10^6/uL (4.0-5.20); Red Cell Distribution Width 12.9 % (11.8-14.3)
[2024-08-13 10:15] LABS: Alanine Aminotransferase 15 U/L (7-40); Alkaline Phosphatase 54 U/L (46-116); Anion Gap 6 (5-15); BUN/Creatinine Ratio 14.3 (10.0-20.0); Blood Urea Nitrogen 11 mg/dL (9-23); Calcium 10.2 mg/dL (8.7-10.4); Carbon Dioxide 28 mmol/L (20-31); Chloride 110 mmol/L (98-107); Glucose 95 mg/dL (74-106); Potassium 3.9 mmol/L (3.5-5.1); Sodium 144 mmol/L (136-145)
[2024-08-13 10:16] LABS: Aspartate Aminotransferase 14 U/L (13-40)
[2024-08-13 10:17] LABS: Albumin 4.3 g/dL (3.2-4.8); Bilirubin, Total 1.2 mg/dL (0.2-1.0); Total Protein 6.8 g/dL (5.7-8.2)
== END | disposition home or self-care (01) ==
LOC: LAB 09:09
PROVIDERS: ATTEND Internal Medicine
DX: N63.10 Unspecified lump in the right breast, unspecified quadrant (principal)
CPT/HCPCS: 36415; 80053; 83615; 85025; 86300

== ENCOUNTER 2024-10-02 07:26 | Inpatient (IN) | payer BC ==
[2024-10-01 09:29] LABS: Urine Bacteria None Seen /hpf (None Seen)
[2024-10-01 09:42] LABS: Basophils # (auto) 0.1 10 ^3/uL (0-0.2); Basophils % (auto) 1.2 % (0.0-2.0); Eosinophils # (auto) 0.1 10 ^3/uL (0-0.8); Eosinophils % (auto) 1.4 % (0.0-7.0); Hematocrit 43.1 % (36.0-46.0); Hemoglobin 14.8 g/dL (12.2-16.2); Lymphocytes # (auto) 1.5 10 ^3/uL (0.4-5.4); Lymphocytes % (auto) 30.8 % (10.0-50.0); Mean Corpuscular Hemoglobin 33.8 pg (28.0-32.0); Mean Corpuscular Hgb Conc. 34.4 g/dL (32.0-36.0); Mean Corpuscular Volume 98.4 fL (80.0-100.0); Monocytes # (auto) 0.4 10 ^3/uL (0-1.3); Neutrophils # (auto) 2.7 10 ^3/uL (1.6-8.6); Neutrophils % (auto) 57.6 % (37.0-80.0); Nucleated Red Blood Cells % 0.1 %; Platelet Count (auto) 205 10^3/uL (140-450); Red Blood Cells 4.38 10^6/uL (4.0-5.20); Red Cell Distribution Width 12.6 % (11.8-14.3); White Blood Cell 4.8 10^3/uL (4.4-10.8)
[2024-10-01 10:02] LABS: Urine Blood 3+ /uL (Negative); Urine Clarity Clear (Clear); Urine Color Yellow (Yellow); Urine Mucus FEW (None Seen); Urine Protein, UAD TRACE (Negative); Urine Specific Gravity 1.028 (1.001-1.035); Urine Urobilinogen Normal (Negative); Urine WBC 5 /hpf (0 - 5); Urine pH 5.5 (5.0-9.0)
[2024-10-01 10:05] LABS: Alanine Aminotransferase 18 U/L (7-40); Albumin 4.3 g/dL (3.2-4.8); Alkaline Phosphatase 54 U/L (46-116); Anion Gap 8 (5-15); Aspartate Aminotransferase 20 U/L (13-40); BUN/Creatinine Ratio 17.1 (10.0-20.0); Blood Urea Nitrogen 13 mg/dL (9-23); Calcium 10.3 mg/dL (8.7-10.4); Carbon Dioxide 27 mmol/L (20-31); Chloride 109 mmol/L (98-107); Glucose 99 mg/dL (74-106); Sodium 144 mmol/L (136-145)
[2024-10-01 10:06] LABS: Bilirubin, Total 0.9 mg/dL (0.2-1.0); Total Protein 6.6 g/dL (5.7-8.2)
[2024-10-01 10:08] LABS: INR 1.02 (0.9-1.15); Partial Thromboplastin Time 27.1 SEC (24.5-34.5); Prothrombin Time 10.8 sec (9.3-11.8)
[~2024-10-02] VITALS: Ht 165.1 cm; Wt 84.2 kg
[~2024-10-02 07:26] MED LIST changes: -POM; -POM PO
[2024-10-02] MEDS ORDERED: PROPOFOL 10 MG/ML 20 ML IV ONE (08:08)
[2024-10-02] MEDS ORDERED: fentaNYL CITRATE 100 MCG/2 ML VL ONE (08:08)
[2024-10-02] MEDS ORDERED: MEPERIDINE HCL (50 MG/ML) 1 ML VIAL ONE (08:18)
[2024-10-02] MEDS ORDERED: ePHEDrine SULFATE 50 MG/ML AMP ONE (08:23)
[2024-10-02] MEDS ORDERED: DexAMETHasone SOD PHOS 10MG/1ML VIAL INJ ONE (08:36)
[2024-10-02] MEDS ORDERED: ONDANSETRON HCL 4 MG/2 ML VIAL ONE (08:36)
[2024-10-02] MEDS: BUPIVACAINE 0.25% INJ 50ML VIAL ONE (08:40)
[2024-10-02] MEDS: LIDOCAINE W/ EPINEPHRINE 1% 20ML VIAL ONE ×2 (08:40→10:55)
[2024-10-02] MEDS ORDERED: HYDROmorphone HCL 2 MG/ML VL/or syr IV PRN (09:30)
[2024-10-02] MEDS ORDERED: ONDANSETRON HCL 4 MG/2 ML VIAL IV PRN ×2 (09:30→12:15)
[2024-10-02 09:36] VITALS: PULSE 77; RESP 11; O2SAT 98
--- NOTE | 2024-10-02 09:38 | DVHOP ---
DATE OF SURGERY: 10/02/2024 PREOPERATIVE DIAGNOSIS: Right breast cancer. POSTOPERATIVE DIAGNOSIS: Right breast cancer. SURGEON: Douglas Tang MD CEMENT LOADER: Gregory Kay. ANESTHESIA: General endotracheal. ANESTHESIOLOGIST: Dr. Baker. PROCEDURE: Right modified radical mastectomy. DESCRIPTION OF PROCEDURE: Under adequate anesthesia, with the patient's skin prepped and draped, an elliptical skin incision was made around the nipple areolar complex and deepened with electrocautery. Skin flaps developed superiorly, medially, inferiorly and laterally and the tissues dissected down onto the pectoral fascia and swept from the pectoralis major fascia and then a Villar retractor was placed underneath the edge of the pectoral muscle and the axillary lymph nodes were sampled in continuity with the mastectomy. The specimen was marked with a long suture at 3 o'clock, short suture at 12 o'clock and submitted for histopathologic examination. The wound was then irrigated, irrigant was aspirated. Hemostasis was meticulously accomplished, found to be complete. Two Wolf-Chapin drains inserted underneath the muscle flaps and exteriorized through separate incisions and secured with 2-0 nylon suture. Wound approximated using 2-0 Monocryl sutures, Dermabond glue and Steri-Strips. The patient remained stable throughout the procedure, left the operating room following an accurate needle and sponge count. Douglas Tang MD PF TID: [id number] RECEIPT: [id number]
[2024-10-02] MEDS ORDERED: MEPERIDINE HCL (25 MG/ML) 1ML VIAL IV PRN (09:45)
[2024-10-02] MEDS: ONDANSETRON HCL 4 MG/2 ML VIAL IV ONE (09:45)
[2024-10-02] MEDS: ACETAMINOPHEN IV 1000 MG/100ML (10MG/ML) IV PRN (09:50)
[2024-10-02] MEDS: HYDROmorphone HCL 2 MG/ML VL/or syr IV PRN (09:55)
[2024-10-02] MEDS: levoFLOXacin 500MG 100 ML IV SCH (10:00)
[2024-10-02] MEDS: PANTOPRAZOLE 40 MG/10 ML VIAL INJ IV SCH (10:00)
[2024-10-02] MEDS ORDERED: B-COCAP34 OR (10:32)
[2024-10-02] MEDS ORDERED: MISCCAP66 OR (10:32)
[2024-10-02] MEDS ORDERED: SACC1CAP3 PO (10:33)
[2024-10-02] MEDS: levoFLOXacin 500MG 100 ML IV ONE (10:55)
[2024-10-02] MEDS: HYDROmorphone HCL 2 MG/ML VL/or syr ONE (10:55)
[2024-10-02] MEDS: ACETAMINOPHEN IV 100 ML IV ONE (10:55)
[2024-10-02] MEDS ORDERED: NITROGLYCERIN 0.4 MG SL TAB SL PRN (12:15)
[2024-10-02] MEDS ORDERED: MORPHINE SULFATE INJ 2 MG/ml SYRG IV PRN (12:15)
[2024-10-02] MEDS ORDERED: HYDROcodone-ACET 5/325MG TAB PO PRN (12:15)
[2024-10-02] MEDS ORDERED: DOCUSATE SOD 100 MG CAP PO PRN (12:15)
--- NOTE | 2024-10-02 12:33 | DVHHP2 ---
History of Present Illness Reason for Visit: Scheduled right mastectomy History of Present Illness Abida Polk is a 69-year-old female with past medical history of atrial fibrillation, hypertension, and sleep apnea who came in for a scheduled right mastectomy. Cardiovascular: AFIB, HTN Pulmonary: Other (sleep apnea) Heme/Onc: Cancer (Cervical, breast) Past Surgical History: Hysterectomy, Other (right shouulder history), Total hip replacement (right) Family History: None Smoke: No ALCOHOL: none Drugs: None Lives: with Family Review of Systems Constitutional: No: Fever, Chills, Sweats, Weakness, Malaise, Other Eyes: No: Pain, Vision change, Conjunctivae inflammation, Eyelid inflammation, Other, Redness ENT: No: Ear pain, Ear discharge, Nose pain, Nose discharge, Nose congestion, Mouth pain, Mouth swelling, Throat pain, Throat swelling, Other Respiratory: No: Cough, Dry, Shortness of breath, SOB with excertion, Wheezing, Hemoptysis, Pleuritic Pain, Sputum, Wheezing, Other Cardiovascular: No: Chest Pain, Palpitations, Orthopnea, Paroxysmal Noc. Dyspnea, Edema, Lt Headedness, Other Gastrointestinal: No: Nausea, Vomiting, Abdominal Pain, Diarrhea, Constipation, Melena, Hematochezia, Other Genitourinary: No Dysuria, No Frequency, No Incontinence, No Hematuria, No Retention, No Other Musculoskeletal: No: other, neck pain, shoulder pain, arm pain, back pain, hand pain, leg pain, foot pain Skin: No: Rash, Lesions, Jaundice, Bruising, Other Other Scheduled right mastectomy Allergies: Coded Allergies: Ciprofloxacin (Verified Allergy, Intermediate, 10/01/24) Doxycycline (Verified Allergy, Intermediate, 10/01/24) Erythromycin (Verified Allergy, Intermediate, RASH, 10/01/24) Penicillins (Verified Allergy, Intermediate, RASH, 10/01/24) Medications Current Medications Medications Dose Ordered Sig/Rg Route Start Time Stop Time Status Last Admin Dose Admin Levofloxacin/ Dextrose 100 ml @ 100 mls/hr DAILY IV 10/02/24 10:00 Hydromorphone HCl 1 mg Q3HPRN PRN IV 10/02/24 09:30 Ondansetron HCl 4 mg Q4HPRN PRN IV 10/02/24 09:30 Pantoprazole Sodium 40 mg DAILY IV 10/02/24 10:00 Metoprolol Succinate 50 mg DAILY PO 10/03/24 10:00 UNV Exam Vital Signs Vital Signs Date Time Temp Pulse Resp B/P (MAP) Pulse Ox O2 Delivery O2 Flow Rate FiO2 10/02/24 10:08 66 14 144/59 (87) 96 10/02/24 09:36 97.1 97.1 10/02/24 09:36 Room Air 0 98 General Appearance: Alert, Oriented X3, Cooperative, moderate distress HEENT: Atraumatic, PERRLA, Mucous membr. moist/pink Respiratory: Clear to auscultation, Normal air movement Cardiovascular: Regular rate, Normal S1, Normal S2 Abdominal: Normal bowel sounds, Soft, No tenderness Extremities: No clubbing, No cyanosis, No edema, Normal pulses Skin: No rashes, No breakdown, No significant lesion Neuro: Normal speech, Strength at 5/5 X4 ext Psych/Mental Status: Mental status NL, Mood NL Labs/Xrays Labs Test 10/01/24 09:25 Range/Units White Blood Count 4.8 4.4-10.8 10^3/uL Red Blood Count 4.38 4.0-5.20 10^6/uL Hemoglobin 14.8 12.2-16.2 g/dL Hematocrit 43.1 36.0-46.0 % Mean Corpuscular Volume 98.4 80.0-100.0 fL Mean Corpuscular Hemoglobin 33.8 H 28.0-32.0 pg Mean Corpuscular Hemoglobin Concent 34.4 32.0-36.0 g/dL Red Cell Distribution Width 12.6 11.8-14.3 % Platelet Count 205 140-450 10^3/uL Mean Platelet Volume 8.8 6.9-10.8 fL Neutrophils (%) (Auto) 57.6 37.0-80.0 % Lymphocytes (%) (Auto) 30.8 10.0-50.0 % Monocytes (%) (Auto) 9.0 0.0-12.0 % Eosinophils (%) (Auto) 1.4 0.0-7.0 % Basophils (%) (Auto) 1.2 0.0-2.0 % Neutrophils # (Auto) 2.7 1.6-8.6 10 ^3/uL Lymphocytes # (Auto) 1.5 0.4-5.4 10 ^3/uL Monocytes # (Auto) 0.4 0-1.3 10 ^3/uL Eosinophils # (Auto) 0.1 0-0.8 10 ^3/uL Basophils # (Auto) 0.1 0-0.2 10 ^3/uL Nucleated Red Blood Cells 0.1 % Prothrombin Time 10.8 9.3-11.8 sec Prothrombin Time INR 1.02 0.9-1.15 Activated Partial Thromboplast Time 27.1 24.5-34.5 SEC Urine Color Yellow Yellow Urine Clarity Clear Clear Urine pH 5.5 5.0-9.0 Urine Specific [place] 1.028 1.001-1.035 Urine Protein Trace H Negative Urine Ketones Negative Negative Urine Blood 3+ H Negative /uL Urine Nitrite Negative Negative Urine Bilirubin Negative Negative Urine Urobilinogen Normal Negative mg/dL Urine Leukocyte Esterase Trace Negative /uL Urine RBC 220 0 - 4 /hpf Urine WBC 5 0 - 5 /hpf Urine Squamous Epithelial Cells Few <5 /hpf Urine Bacteria None seen None Seen /hpf Urine Mucus Few None Seen Urine Glucose Normal Normal mg/dL Sodium Level 144 136-145 mmol/L Potassium Level 4.0 3.5-5.1 mmol/L Chloride Level 109 H 98-107 mmol/L Carbon Dioxide Level 27 20-31 mmol/L Anion Gap 8 5-15 Blood Urea Nitrogen 13 9-23 mg/dL Creatinine 0.76 0.550-1.02 mg/dL Glomerular Filtration Rate Calc 84 >90 mL/min BUN/Creatinine Ratio 17.1 10.0-20.0 Serum Glucose 99 74-106 mg/dL Calcium Level 10.3 8.7-10.4 mg/dL Total Bilirubin 0.9 0.2-1.0 mg/dL Aspartate Amino Transferase (AST) 20 13-40 U/L Alanine Aminotransferase (ALT) 18 7-40 U/L Alkaline Phosphatase 54 46-116 U/L Total Protein 6.6 5.7-8.2 g/dL Albumin 4.3 3.2-4.8 g/dL Assessment/Plan Assessment/Plan Assessment: S/P right mastectomy, Atrial fibrillation, Sleep apnea, Hypertension, Plan: Admit to Tele, Pain management, IV antibiotics, Antiemetics as needed, Wound care, Home medications reconciled, Home Eliquis held, resume per surgeon, BiPAP for naps or sleeping, Plan discussed with: Patient My Orders Orders - ESTELA BERMAN Procedure Category Date Status Time Metoprolol Xl PHA 10/03/24 Logged Succinate (Toprol Xl) 10:00 Admit ADMIT 10/02/24 Verified 12:14 Code Status CODE 10/02/24 Verified 12:14 Sodium Chloride Lock PHA 10/02/24 Verified (Saline Lock Ns) 14:00 Hydrocodone-Acet PHA 10/02/24 Verified 5/325mg Tab ([place]umney 12:15 Ondansetron Hcl PHA 10/02/24 Verified (Zofran) 12:15 Docusate Sodium PHA 10/02/24 Verified Capsule (Colace 12:15 Cardiac DIET 10/02/24 Verified Diet-2gna,Lofat,Lochol Lunch Acetaminophen Tablet PHA 10/02/24 Verified (Tylenol Tablet) 12:15 Morphine Sulfate PHA 10/02/24 Verified Injection 12:15 Nitroglycerin PHA 10/02/24 Verified Sublingual (Ntrostat 12:15 Morphine Sulfate PHA 10/02/24 Verified Injection 12:15 Stat Ekg For Chest NIKOLAY 10/02/24 Verified Pain 12:14 Notify Md Of Changes NIKOLAY 10/02/24 Verified From Base 12:14 Incident Commander For NIKOLAY 10/02/24 Verified 24 Hours 12:14 Emergency Dysrhythmia NIKOLAY 10/02/24 Verified Protocol 12:14 Rhythm Strips Once NIKOLAY 10/02/24 Verified Every Shift 12:14 Oxygen By Nasal RT 10/02/24 Verified Cannula 12:14 Date of Service: Oct 02, 2024 Billing Provider: ESTELA BERMAN Common Visit Codes: [id number] INP/OBS CARE (MOD) ESTELA BERMAN Oct 02, 2024 12:33
[2024-10-02 12:50] VITALS: PULSE 70; RESP 12; O2SAT 95
[2024-10-02] MEDS: ACETAMINOPHEN 325 MG TAB PO PRN (13:40)
[2024-10-02] MEDS: SODIUM CHLOR 0.9% PF (SALINE LOCK) 10ML VIAL/SYR IV SCH (14:00)
[2024-10-02 17:35] VITALS: BP 118/52; PULSE 59; RESP 20; TEMP 97.6; O2SAT 95
[2024-10-02 20:00] VITALS: PULSE 60; RESP 20; O2SAT 98
[2024-10-02 21:00] VITALS: BP 118/50; PULSE 60; RESP 20; TEMP 98.2; O2SAT 98
[2024-10-02 22:00] VITALS: PULSE 61; O2SAT 97
[2024-10-03] VITALS (14 sets, daily range): BP systolic 108–131; BP diastolic 42–61; PULSE 50–67; RESP 14–20; TEMP 97.1–98.3; O2SAT 94–99
[2024-10-03 06:19] LABS: Basophils # (auto) 0 10 ^3/uL (0-0.2); Basophils % (auto) 0.2 % (0.0-2.0); Eosinophils # (auto) 0 10 ^3/uL (0-0.8); Hemoglobin 13.2 g/dL (12.2-16.2); Lymphocytes # (auto) 1.1 10 ^3/uL (0.4-5.4); Lymphocytes % (auto) 12.3 % (10.0-50.0); Mean Corpuscular Hemoglobin 33.9 pg (28.0-32.0); Mean Corpuscular Hgb Conc. 34.7 g/dL (32.0-36.0); Mean Corpuscular Volume 97.6 fL (80.0-100.0); Monocytes # (auto) 0.7 10 ^3/uL (0-1.3); Monocytes % (auto) 7.9 % (0.0-12.0); Neutrophils # (auto) 7.3 10 ^3/uL (1.6-8.6); Neutrophils % (auto) 79.6 % (37.0-80.0); Platelet Count (auto) 199 10^3/uL (140-450); Red Blood Cells 3.89 10^6/uL (4.0-5.20); Red Cell Distribution Width 12.4 % (11.8-14.3); White Blood Cell 9.2 10^3/uL (4.4-10.8)
[2024-10-03 06:29] LABS: Anion Gap 8 (5-15); Carbon Dioxide 26 mmol/L (20-31); Potassium 3.9 mmol/L (3.5-5.1); Sodium 143 mmol/L (136-145)
[2024-10-03 06:35] LABS: BUN/Creatinine Ratio 14.9 (10.0-20.0); Blood Urea Nitrogen 10 mg/dL (9-23); Glucose 103 mg/dL (74-106)
[2024-10-03 06:39] LABS: Chloride 109 mmol/L (98-107)
[2024-10-03] MEDS: MORPHINE SULFATE INJ 2 MG/ml SYRG IV PRN (09:21)
--- NOTE | 2024-10-03 10:11 | DVHPN2 ---
Progress Note Date Seen: Oct 03, 2024 Medical Necessity Reason Pt with a Central, PICC or Fol: No Objective vital signs Vital Sign Date Time Temp Pulse Resp B/P (MAP) Pulse Ox O2 Delivery O2 Flow Rate FiO2 10/03/24 09:30 98 Room Air* 0 21 10/03/24 09:21 63 20 122/51 10/03/24 08:46 98.1 98.1 Total Intake and Output 10/02/24 10/02/24 10/03/24 15:00 23:00 07:00 Intake Total 100 ml 400 ml Output Total 40 ml 41 ml 15 ml Balance 60 ml -41 ml 385 ml medications Current Medications Medications Dose Ordered Sig/Rg Route Start Time Stop Time Status Last Admin Dose Admin Levofloxacin/ Dextrose 100 ml @ 100 mls/hr DAILY IV 10/02/24 10:00 10/03/24 09:17 100 MLS/HR Hydromorphone HCl 1 mg Q3HPRN PRN IV 10/02/24 09:30 Hold Pantoprazole Sodium 40 mg DAILY IV 10/02/24 10:00 Metoprolol Succinate 50 mg DAILY PO 10/03/24 10:00 Sodium Chloride 10 ml Q8HR IV 10/02/24 14:00 10/03/24 05:13 10 ML Acetaminophen/ Hydrocodone Bitart 1 tab Q4HP PRN PO 10/02/24 12:15 Ondansetron HCl 4 mg Q4HP PRN IV 10/02/24 12:15 Docusate Sodium 100 mg BIDPRN PRN PO 10/02/24 12:15 Acetaminophen 650 mg Q6HP PRN PO 10/02/24 12:15 10/02/24 21:31 650 MG Morphine Sulfate 2 mg Q4HPRN PRN IV 10/02/24 12:15 10/03/24 09:21 2 MG Nitroglycerin 0.4 mg Q5MINP PRN SL 10/02/24 12:15 Morphine Sulfate 2 mg Q30M PRN IV 10/02/24 12:15 laboratory and microbiology Laboratory Tests 10/03/24 05:35 Test 10/03/24 05:35 Range/Units Serum Glucose 103 74-106 mg/dL Problem List/Assessment/Plan Problem List/Assessment/Plan 10/03/24 she has "too much pain to go home with only pills" she has an disabled and a son "with issues" at home both of whom rely on her for care and treatments. wound is clean and well approximated, drainage sanguineous. will ask social and political studies professor to see patient. needs to remain in hospital another day or two Plan discussed with: Patient ISH MARIN MD Oct 03, 2024 10:11
[2024-10-03] MEDS: METOPROLOL SUCCINATE XL 50 MG TAB PO SCH (12:01)
--- NOTE | 2024-10-03 17:19 | DVHPN2 ---
Subjective Seen and examined at bedside still complaining of surgical site pain. Continue present treatment. Changes from previous H/P or p: No Changes Eyes: No Pain, No Vision change, No Conjunctivae inflammation, No Eyelid inflammation, No Other, No Redness ENT: No Ear pain, No Ear discharge, No Nose pain, No Nose discharge, No Nose congestion, No Mouth pain, No Mouth swelling, No Throat pain, No Throat swelling, No Other Cardiovascular: No Chest Pain, No Palpitations, No Orthopnea, No Paroxysmal Noc. Dyspnea, No Edema, No Lt Headedness, No Other Respiratory: No Cough, No Dry, No Shortness of breath, No SOB with excertion, No Wheezing, No Hemoptysis, No Pleuritic Pain, No Sputum, No Other Gastrointestinal: No Nausea, No Vomiting, No Abdominal Pain, No Diarrhea, No Constipation, No Melena, No Hematochezia, No Other Genitourinary: No Dysuria, No Frequency, No Incontinence, No Hematuria, No Retention, No Other Musculoskeletal: No other, No neck pain, No shoulder pain, No arm pain, No back pain, No hand pain, No leg pain, No foot pain Skin: No Rash, No Lesions, No Jaundice, No Bruising, No Other Objective Vitals Vital Signs Date Time Temp Pulse Resp B/P (MAP) Pulse Ox O2 Delivery O2 Flow Rate FiO2 10/03/24 12:42 98.3 63 20 120/48 (72) 98 98.3 10/03/24 09:30 Room Air* 0 21 Intake/Output Intake and Output 10/03/24 07:00 Intake Total 500 ml Output Total 96 ml Balance 404 ml Intake Oral 400 ml IV Total 100 ml Output Drainage Total 96 ml # Voids 2 Exam Gen: in bed NAD Chest: Dressing+ and NIYAH drain in place Cvs: N S1/S2, RRR Resp: BLAE Abd: soft, NT Investigation Manager: AAO x 3 Medications Current Medications Medications Dose Ordered Sig/Rg Route Start Time Stop Time Status Last Admin Dose Admin Levofloxacin/ Dextrose 100 ml @ 100 mls/hr DAILY IV 10/02/24 10:00 10/03/24 09:17 100 MLS/HR Hydromorphone HCl 1 mg Q3HPRN PRN IV 10/02/24 09:30 Hold Pantoprazole Sodium 40 mg DAILY IV 10/02/24 10:00 Metoprolol Succinate 50 mg DAILY PO 10/03/24 10:00 10/03/24 12:01 50 MG Sodium Chloride 10 ml Q8HR IV 10/02/24 14:00 10/03/24 05:13 10 ML Acetaminophen/ Hydrocodone Bitart 1 tab Q4HP PRN PO 10/02/24 12:15 Ondansetron HCl 4 mg Q4HP PRN IV 10/02/24 12:15 Docusate Sodium 100 mg BIDPRN PRN PO 10/02/24 12:15 Acetaminophen 650 mg Q6HP PRN PO 10/02/24 12:15 10/02/24 21:31 650 MG Morphine Sulfate 2 mg Q4HPRN PRN IV 10/02/24 12:15 10/03/24 09:21 2 MG Nitroglycerin 0.4 mg Q5MINP PRN SL 10/02/24 12:15 Morphine Sulfate 2 mg Q30M PRN IV 10/02/24 12:15 Laboratory Results Laboratory Tests 10/03/24 05:35 Chemistry Test 10/03/24 05:35 Calcium Level 10.0 mg/dL (8.7-10.4) Urinalysis Test 10/01/24 09:25 Urine Color Yellow (Yellow) Urine Clarity Clear (Clear) Urine pH 5.5 (5.0-9.0) Urine Specific [place] 1.028 (1.001-1.035) Urine Protein Trace (Negative) H Urine Ketones Negative (Negative) Urine Blood 3+ /uL (Negative) H Urine Nitrite Negative (Negative) Urine Bilirubin Negative (Negative) Urine Urobilinogen Normal mg/dL (Negative) Urine Leukocyte Esterase Trace /uL (Negative) Urine RBC 220 /hpf (0 - 4) Urine WBC 5 /hpf (0 - 5) Urine Squamous Epithelial Cells Few /hpf (<5) Urine Bacteria None seen /hpf (None Seen) Urine Mucus Few (None Seen) Urine Glucose Normal mg/dL (Normal) Assessment/Plan Assessment/Plan S/P right mastectomy, Atrial fibrillation, Sleep apnea, Hypertension, Plan: Patient seen by Dr Santa today, cont pain meds Plan discussed with: Patient Date of Service: Oct 03, 2024 Billing Provider: CHAPIS ROUSE MD Common Visit Codes: [id number] INP/OBS CARE(HIGH) CHAPIS ROUSE MD Oct 03, 2024 17:19
[2024-10-04 08:00] VITALS: PULSE 51
[2024-10-04 08:24] VITALS: BP_SYST 120; BP_DIAS 45; BP_DIAS 59; PULSE 64; RESP 18; TEMP 97.8; O2SAT 97
[2024-10-04 09:01] VITALS: O2SAT 98
[2024-10-04 09:02] VITALS: O2SAT 96
[2024-10-04 11:49] VITALS: BP 138/67; PULSE 58; RESP 16; TEMP 98; O2SAT 98
[2024-10-04 17:00] VITALS: BP 127/54; PULSE 57; RESP 16; TEMP 98; O2SAT 96
--- NOTE | 2024-10-04 17:34 | DVHDS2 ---
Discharge Summary Date of Admission Oct 02, 2024 at 12:14 Date of Discharge: Oct 04, 2024 Admitting Diagnosis Right breast cancer. Labs/Diagnostic Data: Laboratory Results Test 10/03/24 05:35 10/01/24 09:25 White Blood Count 9.2 10^3/uL (4.4-10.8) Red Blood Count 3.89 10^6/uL (4.0-5.20) Hemoglobin 13.2 g/dL (12.2-16.2) Hematocrit 38.0 % (36.0-46.0) Mean Corpuscular Volume 97.6 fL (80.0-100.0) Mean Corpuscular Hemoglobin 33.9 pg (28.0-32.0) Mean Corpuscular Hemoglobin Concent 34.7 g/dL (32.0-36.0) Red Cell Distribution Width 12.4 % (11.8-14.3) Platelet Count 199 10^3/uL (140-450) Mean Platelet Volume 9.2 fL (6.9-10.8) Neutrophils (%) (Auto) 79.6 % (37.0-80.0) Lymphocytes (%) (Auto) 12.3 % (10.0-50.0) Monocytes (%) (Auto) 7.9 % (0.0-12.0) Eosinophils (%) (Auto) 0.0 % (0.0-7.0) Basophils (%) (Auto) 0.2 % (0.0-2.0) Neutrophils # (Auto) 7.3 10 ^3/uL (1.6-8.6) Lymphocytes # (Auto) 1.1 10 ^3/uL (0.4-5.4) Monocytes # (Auto) 0.7 10 ^3/uL (0-1.3) Eosinophils # (Auto) 0 10 ^3/uL (0-0.8) Basophils # (Auto) 0 10 ^3/uL (0-0.2) Nucleated Red Blood Cells 0.0 % Sodium Level 143 mmol/L (136-145) Potassium Level 3.9 mmol/L (3.5-5.1) Chloride Level 109 mmol/L (98-107) Carbon Dioxide Level 26 mmol/L (20-31) Anion Gap 8 (5-15) Blood Urea Nitrogen 10 mg/dL (9-23) Creatinine 0.67 mg/dL (0.550-1.02) Glomerular Filtration Rate Calc 93 mL/min (>90) BUN/Creatinine Ratio 14.9 (10.0-20.0) Serum Glucose 103 mg/dL (74-106) Calcium Level 10.0 mg/dL (8.7-10.4) Prothrombin Time 10.8 sec (9.3-11.8) Prothrombin Time INR 1.02 (0.9-1.15) Activated Partial Thromboplast Time 27.1 SEC (24.5-34.5) Urine Color Yellow (Yellow) Urine Clarity Clear (Clear) Urine pH 5.5 (5.0-9.0) Urine Specific [place] 1.028 (1.001-1.035) Urine Protein Trace (Negative) Urine Ketones Negative (Negative) Urine Blood 3+ /uL (Negative) Urine Nitrite Negative (Negative) Urine Bilirubin Negative (Negative) Urine Urobilinogen Normal mg/dL (Negative) Urine Leukocyte Esterase Trace /uL (Negative) Urine RBC 220 /hpf (0 - 4) Urine WBC 5 /hpf (0 - 5) Urine Squamous Epithelial Cells Few /hpf (<5) Urine Bacteria None seen /hpf (None Seen) Urine Mucus Few (None Seen) Urine Glucose Normal mg/dL (Normal) Total Bilirubin 0.9 mg/dL (0.2-1.0) Aspartate Amino Transferase (AST) 20 U/L (13-40) Alanine Aminotransferase (ALT) 18 U/L (7-40) Alkaline Phosphatase 54 U/L (46-116) Total Protein 6.6 g/dL (5.7-8.2) Albumin 4.3 g/dL (3.2-4.8) Other Laboratory Tests 10/03/24 05:35 Brief Hx & Hospital Course: Abida Polk is a 69-year-old female with past medical history of atrial fibrillation, hypertension, and sleep apnea who came in for a scheduled right mastectomy. Tolerated the procedure well, will be discharged home with drains to see Dr. Tang in the office in 1 week. Reports Tylenol will be fine for pain, does not want stronger pain meds. Operations or Procedures DATE OF SURGERY: 10/02/2024 PREOPERATIVE DIAGNOSIS: Right breast cancer. POSTOPERATIVE DIAGNOSIS: Right breast cancer. SURGEON: Douglas Tang MD ENVIRONMENTAL PROFESSIONAL: Gregory Kay. ANESTHESIA: General endotracheal. ANESTHESIOLOGIST: Dr. Baker. PROCEDURE: Right modified radical mastectomy. DESCRIPTION OF PROCEDURE: Under adequate anesthesia, with the patient's skin prepped and draped, an elliptical skin incision was made around the nipple areolar complex and deepened with electrocautery. Skin flaps developed superiorly, medially, inferiorly and laterally and the tissues dissected down onto the pectoral fascia and swept from the pectoralis major fascia and then a Villar retractor was placed underneath the edge of the pectoral muscle and the axillary lymph nodes were sampled in continuity with the mastectomy. The specimen was marked with a long suture at 3 o'clock, short suture at 12 o'clock and submitted for histopathologic examination. The wound was then irrigated, irrigant was aspirated. Hemostasis was meticulously accomplished, found to be complete. Two Wolf-Chapin drains inserted underneath the muscle flaps and exteriorized through separate incisions and secured with 2-0 nylon suture. Wound approximated using 2-0 Monocryl sutures, Dermabond glue and Steri-Strips. The patient remained stable throughout the procedure, left the operating room following an accurate needle and sponge count. Douglas Tang MD PF Condition at Discharge: Stable Final Diagnosis/Problems List Right Breast cancer Discharge Disposition: Home Discharge Instruct/Medications Diet: Regular Activity: Light activity Follow Up/Referral: Dr. Tang in 1 week Medications: Tylenol PRN Discharge Statement: "Patient was advised to return to the ER or call 911 if any headaches, dizziness, shortness of breath, chest pain, abdominal pain, bleeding, fevers, or worsening of medical condition. Patient was counseled about treatment plan, medications, possible side effects, patientverbalized understanding. All questions were answered to the best of my ability. This discharge took greater then 30 minutes in planning, reviewing documentation, counseling the patient, and discussing with other team members." ASSESSMENT ASSESSMENT Assessment Date of Service: Oct 04, 2024 Billing Provider: CHAPIS ROUSE MD Common Visit Codes: [id number] DISCH DAY >30min CHAPIS ROUSE MD Oct 04, 2024 17:34
== END 2024-10-04 18:55 | disposition home or self-care (01) | DRG 581 ==
LOC: SUR 07:26 → TELE 12:14 → TELE-WESTW 15:00
PROVIDERS: ADMIT Nurse Practitioner Family; ATTEND Internal Medicine
PROC: 5A09357 Assistance with Respiratory Ventilation, Less than 24 Consecutive Hours, Continuous Positive Airway Pressure (ICD-10-PCS; 2024-10-02)
PROC: 07B50ZZ Excision of Right Axillary Lymphatic, Open Approach (ICD-10-PCS; 2024-10-02)
PROC: 0HTT0ZZ Resection of Right Breast, Open Approach (ICD-10-PCS; principal; 2024-10-02 08:07)
PROC: 5A09357 Assistance with Respiratory Ventilation, Less than 24 Consecutive Hours, Continuous Positive Airway Pressure (ICD-10-PCS; 2024-10-03)
DX: C50.911 Malignant neoplasm of unspecified site of right female breast (principal); I48.91 Unspecified atrial fibrillation; G47.30 Sleep apnea, unspecified; Z96.641 Presence of right artificial hip joint; I10 Essential (primary) hypertension; Z90.710 Acquired absence of both cervix and uterus; Z88.0 Allergy status to penicillin; Z88.1 Allergy status to other antibiotic agents
CPT/HCPCS: 36415; 80048; 80053; 81001; 85025; 85610; 85730; 94660; G0378; J0131; J1100; J1956; J2405; J2470; J2704; J3490

== ENCOUNTER 2025-04-30 06:52 | Outpatient (CLI) | payer OTHER ==
[~2025-04-30] VITALS: Ht 165.1 cm; Wt 77.1 kg
[~2025-04-30 06:52] MED LIST changes: -CHOL1CAP59 PO; -MAGN100T9 PO
[2025-04-30] MEDS ORDERED: fentaNYL CITRATE 100 MCG/2 ML VL ONE (08:31)
[2025-04-30] MEDS ORDERED: HEPARIN SODIUM (PORCINE) 5000 UNITS/ML 1ML VIAL ONE (08:31)
[2025-04-30] MEDS ORDERED: LIDOCAINE 2%HCL (LOCAL ANESTH.) INJ 20ML MDV ONE (08:32)
[2025-04-30] MEDS ORDERED: MIDAZOLAM HCL 2MG/2ML 2ml VIAL (1mg/ml) ONE (08:32)
[2025-04-30 09:33] VITALS: BP 112/53; PULSE 48; RESP 12; O2SAT 99
[2025-04-30] MEDS: CLINDAMYCIN 600MG IV 50 ML IV ONE (09:45)
[2025-04-30] MEDS ORDERED: CLINDAMYCIN 600MG IV 50 ML IV ONE (09:45)
--- NOTE | 2025-04-30 09:45 | DVH ---
XY Insertion of Venous Cath HISTORY: PORT A CATH placement for chemo PROCEDURE: Informed consent was obtained. The patient was placed supine on the interventional table. 600 mg Clindamycin was given. A limited localization ultrasound of the right neck base was obtained. The right upper chest and neck base were prepped with chlorhexidine which was allowed to dry and drap ed in the usual sterile fashion. Time out was performed. With real-time ultrasound guidance, the inte rnal jugular vein was accessed with a micropuncture kit, and an image documenting patency sent to PAC S. The planned skin tract and the port placement site were were infiltrated with lidocaine with epinephr ine. The subcutaneous pocket was created with blunt dissection. The catheter was tunneled through the skin tract to the neck site. The [address] port was attached to the tubing flushed. The catheter w as trimmed to desired length. The internal jugular vein entrance site was serially dilated and the ca theter was placed through a peel-a-way sheath. The port was flushed with heparinized saline and demon strated satisfactory flow. The skin openings were sutured closed in 1 layers with Vicryl, as well as and Dermabond and steristrips and then sterile dressings applied. A post procedure image was obtained . No immediate complication was identified. Air Kerma 3 mGy FLUOROSCOPY TIME: 1.5 minutes. SEDATION: Dr. Sam Altman was personally responsible for the administration of moderate sedation during the procedure performed, including the use of an independent trained observer who had no other duties during the procedure. The drugs utilized were IV fentanyl and versed (see nursing log for details). The total time of supervision by the attending physician was approximately 45 minutes. FINDINGS: Widely patent right internal jugular vein. Post procedure image demonstrates [id number] in the right upper chest with the tip right atrium. IMPRESSION: Placement of 8 kinyarwanda right chest [id number].
[2025-04-30 09:49] VITALS: BP 105/63; PULSE 50; RESP 12; O2SAT 99
[2025-04-30 10:04] VITALS: BP 104/68; PULSE 65; RESP 17; O2SAT 92
[2025-04-30 10:19] VITALS: BP 112/85; PULSE 54; RESP 13; O2SAT 92
[2025-04-30 10:35] VITALS: BP 113/41; PULSE 65; RESP 14; O2SAT 92
[2025-04-30 10:49] VITALS: BP 115/58; PULSE 67; RESP 15; O2SAT 92
== END 2025-04-30 17:00 | disposition home or self-care (01) ==
LOC: CATH 06:52
DX: C50.812 Malignant neoplasm of overlapping sites of left female breast (principal); I48.91 Unspecified atrial fibrillation; I10 Essential (primary) hypertension; G47.30 Sleep apnea, unspecified; Z90.710 Acquired absence of both cervix and uterus; Z98.890 Other specified postprocedural states; Z88.0 Allergy status to penicillin; Z88.1 Allergy status to other antibiotic agents; Z79.899 Other long term (current) drug therapy
CPT/HCPCS: 36561; 76937; 77001; C1788; J1644; J2250; J3010; J3490; 99152; 99153

== ENCOUNTER 2025-05-24 05:59 | Emergency (ER) | payer OTHER ==
[~2025-05-24] VITALS: Ht 165.1 cm; Wt 77.2 kg
--- NOTE | 2025-05-24 06:22 | ED.PDOC ---
History of Present Illness HPI Comments This is a 69 year old female presenting to the ED with chief complaint of generalized weakness. Patient reports that she has been experiencing intermittent episodes of generalized weakness since January after starting chemotherapy for breast cancer and after her . Patient relays that she had an episode of associated SOB and chest pain a week ago, but that has since resolved. Patient denies any N/V/D, abdominal pain, dizziness, headache, numbness, or tingling. Chief Complaint: General Weakness Time Seen by MD: 06:21 Primary Care Provider: MARIAELENA Ayala Reviewed Notes: Nurses Notes, Medications, Allergies Allergies: Coded Allergies: Ciprofloxacin (Verified Allergy, Intermediate, BRUISING , 04/28/25) Doxycycline (Verified Allergy, Intermediate, RASH, 04/28/25) Erythromycin (Verified Allergy, Intermediate, RASH, 04/28/25) Penicillins (Verified Allergy, Intermediate, RASH, 04/28/25) Home Meds Reported Medications Metoprolol Succinate (Metoprolol Succinate Er) 50 Mg Tab, 1 TAB PO QAM for ARRYTHMIA 07/16/24 Apixaban Base (ELIQUIS) 5 Mg Tab, 1 TAB PO BID for ATRIAL FIB. 07/16/24 Information Source: Patient Mode of Arrival: Ambulatory Severity: Moderate Timing: Months Duration: Since onset Prehospital treatment: None Past Medical History PAST MEDICAL HISTORY: AFIB, Cancer, HTN Surgical History: Hysterectomy, Tonsillectomy Surgical History (Other): Mastectomy, Hip surgery ENTERPRISE RECORDS ANALYST History: No Pertinent ENTERPRISE RECORDS ANALYST History Family History Family History: Reviewed,noncontributory to illness, No family hx of DM Social History Smoker: Non-Smoker Alcohol: Denies ETOH Use Drugs: Denies Drug Use Lives In: Home Constitutional: reports: weakness; denies: chills, diaphoresis, fatigue, fever, malaise, sweats, others EENTM: denies: blurred vision, double vision, ear bleeding, ear discharge, ear drainage, ear pain, ear ringing, eye pain, eye redness, hearing loss, mouth p ain, mouth swelling, nasal discharge, nose bleeding, nose congestion, nose pain, photophobia, tearing, throat pain, throat swelling, voice changes, others Respiratory: reports: shortness of breath; denies: cough, hemoptysis, orthopnea, SOB at rest, SOB with excertion, stridor, wheezing, others Cardiovascular: reports: chest pain; denies: dizzy spells, diaphoresis, Dyspnea on exertion, edema, irregular heart beat, left arm pain, lightheadedness, palpitations, PND, syncope, others Gastrointestinal: denies: abdomen distended, abdominal pain, blood streaked bowels, constipated, diarrhea, dysphagia, difficulty swallowing, hematemesis, melena, nausea, poor appetite, poor fluid intake, rectal bleeding, rectal pain, vomiting, others Genitourinary: denies: abnormal vagina bleeding, burning, dyspareunia, dysuria, flank pain, frequency, hematuria, incontinence, pain, , vagina discharg e, urgency, others Neurological: denies: dizziness, fainting, headache, left sided numbness, left sided weakness, numbness, paresthesia, pre-existing deficit, right sided numbness, right sided weakness, seizure, speech problems, tingling, tremors, weakness, others Musculoskeletal: denies: back pain, gout, joint pain, joint swelling, muscle pain, muscle stiffness, neck pain, others Integumetry: denies: bruises, change in color, change in hair/nails, dryness, laceration, lesions, lumps, rash, wounds, others Allergic/Immunocompromised: denies: Difficulty Healing, Frequent Infections, Hives, Itching, others Hematologic/Lymphatic: denies: anemia, blood clots, easy bleeding, easy bruising, swollen glands, others Endocrine: denies: excessive hunger, excessive sweating, excessive thirst, excessive urination, flushing, intolerance to cold, intolerance to heat, unexplained weight gain, unexplained weight loss, others Psychiatric: denies: anxiety, bipolar disorder, depression, hopeless, panic d isorder, schizophrenia, sleepless, suicidal, others All Other Systems: Reviewed and Negative Physical Exam General Appearance: Moderate Distress, Normal HEENT: Normal ENT Inspection, Pharynx Normal, TMs Normal Neck: Full Range of Motion, Non-Tender, Normal, Normal Inspection Respiratory: Chest Non-Tender, Lungs Clear, No Accessory Muscle Use, No Respiratory Distress, Normal Breath Sounds Cardiovascular: No Edema, No JVD, No Murmur, No Gallop, Normal Peripheral Pulses, Regular Rate/Rhythm Breast Exam: Deferred Gastrointestinal: No Organomegaly, Non Tender, No Pulsatile Mass, Normal Bowel Sounds, Soft Genitalia: Deferred Pelvic: Deferred Rectal: Deferred Extremities: No calf tenderness, Normal capillary refill, Normal inspection, Normal range of motion, Non-tender, No pedal edema Musculoskeletal : Apperance: Normal Neurologic: Alert, installment loan collector II-XII nml as Tested, No Motor Deficits, Normal Affect, Normal Mood, No Sensory Deficits Cerebellar Function: Normal Reflexes: Normal Skin: Dry, Normal Color, Warm Peripheral Pulses: 3+ Radial (R), 3+ Radial (L) Lymphatic: No Adenopathy Was a procedure done? Was a procedure done?: No EKG EKG : Pulse Rate (adult): 67 [place]: Normal Cardiac Rhythm: NSR Block: None Hypertrophy: None ST: Normal Differential Dx Considerations may include: Anemia Electrolyte imbalance X-Ray, Labs, Meds, VS Vital Signs Date Time Temp Pulse Resp B/P (MAP) Pulse Ox O2 Delivery O2 Flow Rate FiO2 05/24/25 06:22 67 05/24/25 06:05 98.1 69 14 116/59 (78) 97 98.1 Patient alert. Came in for generalized weakness. Vitals stable. Answering questions. Pre-existing condition causing her symptoms. Reviewed her history. Explained to the patient. Was told to follow up with her primary care physician. Was told to come back if there is any problem. Time of 1ST Reevaluation: 07:20 Reevaluation 1ST: Unchanged Patient Education/Counseling: Diagnosis, Treatment Family Education/Counseling: No Family Present SEPSIS Sepsis Screen Date sepsis recognized/suspect: May 24, 2025 Time Sepsis recognized/suspect: 604 Recent Procedure: No On Antibiotic Therapy: No Respiratory Rate >20: No Heart Rate >90: No Temp<36 C (96.8 F) or >38.3 C: No SBP <90 or MAP <65 mmHG: No New Acute Mental Status Change: No Is the patient on CPAP, BIPAP,: No Physician Orders Complete Blood Count (05/24/25 06:19) Urinalysis (05/24/25 06:19) Basic Metabolic Panel (05/24/25 06:19) Sodium Chloride 0.9% (05/24/25 06:30) Vital Signs Date Time Temp Pulse Resp B/P (MAP) Pulse Ox O2 Delivery O2 Flow Rate FiO2 05/24/25 06:22 67 05/24/25 06:05 98.1 69 14 116/59 (78) 97 98.1 Departure 1 Departure Time of Disposition: 06:40 Impression: Primary Impression: Generalized weakness Disposition: 01 HOME / SELF CARE / HOMELESS Condition: Good Discharged With: Self Critical Care Note Critical Care Time?: No Stability Stability form required: No Heart Score Heart Score: Heart Score Response (Comments) Value History Slightly Suspicious 0 EKG Normal 0 Age >65 2 Risk Factors 1 or 2 risk factors 1 Troponin N/A 0 Total 3 I personally scribed for ALEXUS TORRES MD ([email or web address]) on 05/24/25 at 06:22. Electronically submitted by Guilherme Choudhury ([email or web address]). ALEXUS TORRES MD May 24, 2025 06:22
[2025-05-24] MEDS: SODIUM CHLORIDE 0.9% 1,000 ML IV ONE (06:59)
[2025-05-24 07:02] LABS: Hematocrit 41.9 % (36.0-46.0); Hemoglobin 14.2 g/dL (12.2-16.2); Mean Corpuscular Hemoglobin 33.2 pg (28.0-32.0); Mean Corpuscular Volume 97.8 fL (80.0-100.0); Nucleated Red Blood Cells % 0.0 %; Potassium 3.6 mmol/L (3.5-5.1); Sodium 142 mmol/L (136-145)
[2025-05-24 07:03] LABS: Anion Gap 8 (5-15); Calcium 9.8 mg/dL (8.7-10.4); Carbon Dioxide 27 mmol/L (20-31); Chloride 107 mmol/L (98-107)
[2025-05-24 07:08] LABS: BUN/Creatinine Ratio 18.8 (10.0-20.0); Blood Urea Nitrogen 15 mg/dL (9-23); Glucose 87 mg/dL (74-106)
[2025-05-24 07:36] VITALS: BP 117/67; PULSE 70; RESP 18; TEMP 98.9; O2SAT 100
[2025-05-24 08:36] LABS: Urine Protein, UAD TRACE (Negative)
--- NOTE | 2025-06-06 14:43 | ECG ---
[facility] Test Date: 2025-05-24 Test Time: 06:10:27 Pat Name: TUCKER PROCTOR Department: ED Room: Gender: F Surface Grinder: FABIOLA : 1955 Requested By: ALEXUS TORRES Order Number: [id number] Reading MD: Gurpreet Boyle Measurements Intervals [place] Rate: 67 P: 59 MO: 204 QRS: -6 QRSD: 95 T: 71 QT: 414 QTc: 437 Interpretive Statements Sinus rhythm Anterior infarct, old Electronically Signed On 06-09-2025 16:38:34 PDT by Gurpreet Boyle Please click the below link to view image of tracing.
[2025-07-22] MEDS ORDERED: ASCO500C49 PO (11:23)
[2025-07-22] MEDS ORDERED: B-COCAP34 OR (11:23)
[2025-07-22] MEDS ORDERED: CHOL100067 PO (11:23)
[2025-07-22] MEDS ORDERED: MAGN1CAP5 (11:23)
[2025-07-22] MEDS ORDERED: TURM500C6 PO (11:23)
== END 2025-05-24 09:27 | disposition home or self-care (01) ==
LOC: ER 05:59
DX: R53.1 Weakness (principal); I10 Essential (primary) hypertension; I48.91 Unspecified atrial fibrillation; Z79.899 Other long term (current) drug therapy; Z88.0 Allergy status to penicillin; Z88.1 Allergy status to other antibiotic agents; Z90.710 Acquired absence of both cervix and uterus
CPT/HCPCS: 36415; 80048; 81001; 85025; 93005; 96360; 99284; J7030

== ENCOUNTER 2025-07-23 09:50 | Day surgery (SDC) | payer OTHER ==
[2025-07-21 10:22] LABS: Hematocrit 43.8 % (36.0-46.0); Hemoglobin 15.1 g/dL (12.2-16.2); Mean Corpuscular Hemoglobin 33.6 pg (28.0-32.0); Mean Corpuscular Volume 97.9 fL (80.0-100.0); Nucleated Red Blood Cells % 0.0 %
[2025-07-21 10:27] LABS: INR 1.01 (0.9-1.15); Partial Thromboplastin Time 27.5 SEC (24.5-34.5); Prothrombin Time 10.7 sec (9.3-11.8)
[2025-07-21 10:53] LABS: Alanine Aminotransferase 23 U/L (7-40); Alkaline Phosphatase 53 U/L (46-116); Anion Gap 5 (5-15); BUN/Creatinine Ratio 18.2 (10.0-20.0); Blood Urea Nitrogen 14 mg/dL (9-23); Calcium 9.4 mg/dL (8.7-10.4); Carbon Dioxide 29 mmol/L (20-31); Glucose 95 mg/dL (74-106); Potassium 4.3 mmol/L (3.5-5.1); Sodium 141 mmol/L (136-145); Total Protein 6.7 g/dL (5.7-8.2)
[2025-07-21 10:54] LABS: Albumin 4.2 g/dL (3.2-4.8); Bilirubin, Total 0.8 mg/dL (0.2-1.0); Chloride 107 mmol/L (98-107)
[2025-07-21 12:03] LABS: Urine Protein, UAD Negative (Negative)
[~2025-07-23] VITALS: Ht 165.1 cm; Wt 83.9 kg
[~2025-07-23 09:50] MED LIST changes: +ASCO500C49 PO; +B-COCAP34 OR; +CHOL100067 PO; +MAGN1CAP5; +TURM500C6 PO
[2025-07-23] MEDS ORDERED: KETAMINE 50mg/ML 1ml syringe IV ONE (09:51)
[2025-07-23] MEDS ORDERED: ceFAZolin 1GM/50ML 100 ML IV ONE (11:46)
[2025-07-23] MEDS ORDERED: ONDANSETRON HCL 4 MG/2 ML VIAL ONE (12:41)
[2025-07-23] MEDS ORDERED: GLYCOPYRROLATE 0.2 MG/ML 1ML VIAL ONE (12:41)
[2025-07-23] MEDS ORDERED: MIDAZOLAM HCL 2MG/2ML 2ml VIAL (1mg/ml) ONE (12:41)
[2025-07-23] MEDS ORDERED: PROPOFOL 10 MG/ML 20 ML IV ONE (12:41)
[2025-07-23] MEDS: BUPIVACAINE 0.5% P/F INJ 10 ML VIAL ONE (13:33)
[2025-07-23] MEDS: LIDOCAINE W/ EPINEPHRINE 1% 20ML VIAL ONE (13:33)
[2025-07-23 13:42] VITALS: PULSE 71; RESP 13; TEMP 97.6
[2025-07-23] MEDS ORDERED: ONDANSETRON HCL 4 MG/2 ML VIAL IV PRN (14:00)
[2025-07-23] MEDS ORDERED: HYDROmorphone HCL 2 MG/ML VL/or syr IV PRN (14:00)
--- NOTE | 2025-07-23 14:00 | DVHOP ---
DATE OF SURGERY: 07/23/2025 PREOPERATIVE DIAGNOSIS: Nonfunctional Port-a-Cath. POSTOPERATIVE DIAGNOSIS: Nonfunctional Port-a-Cath. SURGEON: Douglas Tang MD. MANAGER INSIDE: Gregory Kay. ANESTHESIA: Local with IV sedation. ANESTHESIOLOGIST: Dr. Small. PROCEDURE: Explantation of Port-a-Cath. DESCRIPTION OF PROCEDURE: Under adequate anesthesia with the skin prepped and draped and infiltrated with 0.25% Marcaine and 0.5% Xylocaine, the Port-a-Cath was explanted and pressure applied at its insertion site in the internal jugular vein on the right neck. The patient's wound was irrigated. The catheter was submitted for identification and the wound was approximated using Monocryl sutures, Dermabond glue, and Steri-Strips. The patient remained stable throughout the procedure, left the operating room following an accurate needle and sponge count. Negligible blood loss. Douglas Tang MD PF/COURTNEY TID: [id number] RECEIPT: [id number]
[2025-07-23 14:27] VITALS: BP 139/65; PULSE 74; RESP 15; O2SAT 99
== END 2025-07-23 15:01 | disposition home or self-care (01) ==
LOC: SUR 09:50
PROVIDERS: ATTEND Surgery
DX: Z45.2 Encounter for adjustment and management of vascular access device (principal); C50.911 Malignant neoplasm of unspecified site of right female breast; Z88.0 Allergy status to penicillin; Z88.1 Allergy status to other antibiotic agents; Z88.2 Allergy status to sulfonamides; Z88.8 Allergy status to other drugs, medicaments and biological substances; G47.33 Obstructive sleep apnea (adult) (pediatric)
CPT/HCPCS: 36415; 36590; 80053; 81003; 85025; 85610; 85730; 86850; 86900; 86901; 88300; J0690; J1956; J2250; J2405; J2704; J3490